=== PATIENT | male | born 1945 | race Caucasian/White ===

== ENCOUNTER → 2018-07-19 14:04 | Outpatient (CLI) | payer MEDICARE, OTHER, SELFPAY ==
--- NOTE | 2018-07-19 14:16 | DI.RAD.S_ITS ---
PROCEDURE: XR LUMBAR SPINE 2-3V INDICATIONS: ACUTE BACK PAIN TECHNIQUE: 3 views of the lumbar spine were acquired. COMPARISON: None. FINDINGS: Bones: 5 [id number] vertebrae are present. There is normal bony alignment. No vertebral body compression fractures. No suspicious bony lesions. There is moderately severe degenerative disc disease along the lumbosacral spine from L1 inferiorly, and facet osteoarthritis is most prominent at L4-5 and L5-S1. Mild convex rightward scoliosis is centered at L3. Spinal and foraminal stenosis likely is present. Soft tissues: Overlying bowel gas pattern is normal. No suspicious soft tissue calcifications. IMPRESSION: No compression fracture is found. Oliosis with moderately severe degenerative disc disease and facet osteoarthritis along the lumbosacral spine is present with spinal and foraminal stenosis most prominent at L4-5 and L5-S1. Dictated by: Tr Hdez M.D. on 07/19/2018 at 15:37 Approved by: Tr Hdez M.D. on 07/19/2018 at 15:39
--- NOTE | 2018-07-19 14:16 | DI.RAD.S_ITS ---
PROCEDURE: XR THORACIC SPINE 3V INDICATIONS: ACUTE BACK PAIN TECHNIQUE: 3 views of the thoracic spine were acquired. COMPARISON: None. FINDINGS: Bones: No fractures or dislocations. No suspicious bony lesions. 12 pairs of ribs are noted, and appear intact where visualized. Soft tissues: No paravertebral stripe thickening. IMPRESSION: Degenerative disc disease and facet osteoarthritis along the thoracic spine is mild and overall severity without evidence of compression fracture. No spinal or foraminal stenosis would be suspected. Dictated by: Tr Hdez M.D. on 07/19/2018 at 15:39 Approved by: Tr Hdez M.D. on 07/19/2018 at 15:40
== END ==
PROVIDERS: Family Provider Internal Medicine; PCP Internal Medicine; Visit Provider Internal Medicine
DX: M54.9 Dorsalgia, unspecified (principal); M51.37 Other intervertebral disc degeneration, lumbosacral region; M51.34 Other intervertebral disc degeneration, thoracic region; M48.07 Spinal stenosis, lumbosacral region; M48.061 Spinal stenosis, lumbar region without neurogenic claudication; M47.814 Spondylosis without myelopathy or radiculopathy, thoracic region; M47.816 Spondylosis without myelopathy or radiculopathy, lumbar region; M47.817 Spondylosis without myelopathy or radiculopathy, lumbosacral region
CPT/HCPCS: 72072; 72100

== ENCOUNTER 2019-01-04 09:45 | Inpatient (IN) | payer MEDICARE, OTHER, SELFPAY ==
[2019-01-04] VITALS (9 sets, daily range): BP systolic 107–149; BP diastolic 63–81; PULSE 56–77; RESP 15–20; TEMP 36.8–37.8; O2SAT 90–98; BMI 24.4
[2019-01-04 10:15] LABS: Add Manual Diff / Slide Review NO; Basophils Absolute Auto 0 /uL (0-100); Basophils Percent Auto 0.3 % (0-2); Eosinophils Absolute Auto 100 /uL (0-450); Eosinophils Percent Auto 0.9 % (2-4); Hematocrit 44.1 % (41-53); Hemoglobin 14.2 g/dL (13.5-17.5); Lymphocytes Absolute Auto 600 /uL (1100-4500); Lymphocytes Percent Auto 9.4 % (25-40); Mean Corpuscular HGB Conc 32.2 % (30-36); Mean Corpuscular Hemoglobin 26.7 PG (26-34); Monocytes Absolute Auto 500 /uL (0-900); Monocytes Percent Auto 7.5 % (3-14); Neutrophils Absolute Auto 5300 /uL (1500-7000); Neutrophils Percent Auto 81.9 % (50-75); Platelet Count 256 X10^3/uL (150-400); Red Blood Cell Count 5.32 X10^6/uL (4.5-5.9); Red Cell Distribution Width 18.7 % (11.6-14.8); White Blood Cell Count 6.5 X10^3/uL (4.5-11.0)
[2019-01-04 10:29] LABS: Alanine Aminotransferase 60 IU/L (21-72); Albumin 4.6 g/dL (3.5-5.0); Albumin Globulin Ratio 1.4 (1.0-2.8); Alkaline Phosphatase 68 U/L (38-126); Aspartate Aminotransferase 52 IU/L (17-59); Bilirubin Total 0.7 mg/dL (0.2-1.3); Blood Urea Nitrogen 16 mg/dL (9-20); Calcium 9.7 mg/dL (8.4-10.2); Carbon Dioxide 29 mmol/L (22-32); Chloride 102 mmol/L (98-107); Estimated Glomerular Filt Rate > 60.0 mL/min (>60); Globulin 3.2 g/dL (1.7-4.1); Glucose 117 mg/dL (80-110); HEMOLYSIS < 15 (0-50); Lipase 74 U/L (23-300); Potassium 4.2 mmol/L (3.4-5.1); Sodium 140 mmol/L (137-145); Total Protein 7.8 g/dL (6.3-8.2)
--- NOTE | 2019-01-04 10:42 | ED.ABDPAIN ---
HPI - Abdominal Pain General Chief Complaint: Abdominal Pain Stated Complaint: severe stomach pains Time Seen by Provider: 01/04/19 09:48 Source: patient and family Mode of arrival: ambulatory Limitations: no limitations History of Present Illness HPI narrative: 73-year-old male nonsmoker with relatively benign medical history presents with his in the chief complaint of a 12 hour span of worsening generalized abdominal pain in the presence of nausea and vomiting. He has worsening pain with movement and improvement with rest. He denies any radiation of the pain. He denies any history of similar. He had bowel movements yesterday but seem to be decreasing today. He has a poor appetite. MD complaint: abdominal pain Onset (ago): hour(s) Pain Consistency: constant Location: diffuse Severity: severe Quality: cramping and stabbing Radiation: none Relieving factors: rest Exacerbating factors: movement Associated symptoms: nausea and vomiting Related Data Home Medications Medication Instructions Recorded Confirmed terazosin 10 mg PO BEDTIME 01/04/19 01/04/19 Allergies Allergy/AdvReac Type Severity Reaction Status Date / Time No Known Drug Allergies Allergy Verified 01/04/19 09:56 Review of Systems Constitutional Denies chills, Denies fever(s), Denies lethargy and Denies weakness Eyes Denies change in vision, Denies eye discharge, Denies irritation and Denies loss of vision ENT Ears, Nose, Mouth, and Throat: Denies change in voice, Denies neck pain and Denies sore throat Cardiovascular Denies chest pain, Denies irregular heart rhythm, Denies lightheadedness, Denies palpitations, Denies dyspnea, Denies dyspnea on exertion and Denies orthopnea Respiratory Denies cough, Denies dyspnea, Denies dyspnea on exertion and Denies wheezing Gastrointestinal Gastrointestinal: Reports abdominal pain, Denies change in bowel habits, Denies diarrhea, Reports nausea and Reports vomiting Genitourinary Denies hematuria, Denies flank pain, Denies urinary incontinence and Denies urinary urgency Musculoskeletal Denies neck pain Integumentary/Breasts Denies pruritus, Denies erythema, Denies rash and Denies wounds Neurologic Denies confusion, Denies loss of vision and Denies weakness Psychiatric Denies anxiety, Denies confusion, Denies depression, Denies homicidal ideation and Denies suicidal ideation Endocrine Denies palpitations Hematologic/Lymphatic Denies easy bruising Allergic/Immunologic Denies wheezing [facility] Medical History Abnormal endoscopy of upper gastrointestinal tract (Acute) Chronic back pain (Acute) Chronic fatigue (Acute) Essential tremor (Acute) Pre-diabetes (Acute) Weakness of left lower extremity (Acute) Family History (Updated 01/04/19 @ 21:46 by Janki Monaco RN) Other Breast cancer Parkinsons disease Social History household members: spouse Family History Other Breast cancer Parkinsons disease Social History household members: spouse Exam Narrative Exam Narrative: GENERAL: 73-year-old male appears stated age, obviously uncomfortable and in significant distress, rubbing his abdomen and holding an emesis bag HEAD: Atraumatic. Normocephalic. No temporal or scalp tenderness. EYES: Pupils equal round and reactive. Extraocular motions intact. No scleral icterus. No injection or drainage. ENT: Nose without bleeding, purulent drainage or septal hematoma. Throat without erythema, tonsillar hypertrophy or exudate. Uvula midline. Airway patent. NECK: Trachea midline. No JVD or lymphadenopathy. Supple, nontender, no meningeal signs. CARDIOVASCULAR: Regular rate and rhythm without murmurs, gallops, or rubs. RESPIRATORY: Clear to auscultation. Breath sounds equal bilaterally. No wheezes, rales, or rhonchi. GASTROINTESTINAL: Abdomen soft, tender throughout, nondistended. No hepato-splenomegaly, or palpable masses. No guarding. EXTREMITIES: No clubbing, cyanosis, or edema. No joint tenderness, effusion, or edema noted. BACK: Nontender without deformity or crepitance. No flank tenderness. NEURO: AOx3. SKIN: No rash or erythema. Initial Vital Signs Initial Vital Signs: Vital Signs Pulse Rate 57 L 01/04/19 09:53 Respiratory Rate 20 01/04/19 09:53 Blood Pressure 136/76 01/04/19 09:53 Pulse Oximetry 96 01/04/19 09:53 Course Orders Ordered: ED Orders 01/05/19 07:00 Complete Blood Count AUTO DIFF Routine 01/05/19 08:00 XR abdomen min 2V Routine Sodium Chloride (Normal Saline 0.9%) 1,000 mls @ 100 mls/hr IV CONT RUFINO Last Admin: 01/05/19 02:39 Dose: 100 mls/hr Infusion: 01/05/19 02:39 Dose: 100 mls/hr Admin: 01/04/19 16:55 Dose: 100 mls/hr Infusion: 01/04/19 16:55 Dose: 100 mls/hr Admin: 01/04/19 16:50 Dose: 100 mls/hr Infusion: 01/04/19 16:50 Dose: 100 mls/hr Admin: 01/04/19 16:35 Dose: 100 mls/hr Morphine Sulfate (Morphine) 2 mg IV Q4HR PRN PRN Reason: Pain, Moderate (4-6) Last Admin: 01/05/19 05:33 Dose: 2 mg Admin: 01/04/19 16:49 Dose: 2 mg Ondansetron HCl (Zofran) 4 mg IV Q8HR PRN PRN Reason: Nausea And Vomiting Discontinued Medications Bisacodyl (Dulcolax) 10 mg WA NOW ONE Stop: 01/04/19 16:14 Last Admin: 01/04/19 16:35 Dose: 10 mg Hydromorphone HCl (Dilaudid) 0.5 mg IV NOW ONE Stop: 01/04/19 11:48 Last Admin: 01/04/19 14:14 Dose: 0.5 mg Hydromorphone HCl (Dilaudid) 0.5 mg IV NOW ONE Stop: 01/04/19 11:48 Last Admin: 01/04/19 11:51 Dose: 0.5 mg Hydromorphone HCl (Dilaudid) 0.5 mg IV NOW ONE Stop: 01/04/19 14:11 Last Admin: 01/04/19 14:21 Dose: Not Given Sodium Chloride (Normal Saline 0.9%) 1,000 mls @ 1,000 mls/hr IV BOLUS ONE Stop: 01/04/19 14:26 Last Infusion: 01/04/19 14:20 Dose: 1,000 mls/hr Admin: 01/04/19 14:09 Dose: 1,000 mls/hr Sodium Chloride (Normal Saline 0.9%) 1,000 mls @ 125 mls/hr IV CONT RUFINO Last Admin: 01/04/19 17:04 Dose: Not Given Morphine Sulfate (Morphine) 2 mg IV NOW ONE Stop: 01/04/19 14:55 Last Admin: 01/04/19 16:31 Dose: Not Given Morphine Sulfate (Morphine) 2 mg IV Q4HR PRN PRN Reason: Pain, Severe (7-10) Ondansetron HCl (Zofran) 4 mg IV Q4HR PRN PRN Reason: Nausea And Vomiting Consultations Consultation #1: Dr. Hernandez happy to accept this patient Vital Signs - 8 hr 01/04/19 23:00 01/05/19 00:00 01/05/19 02:46 Temperature 100.0 F H 99.7 F H Pulse Rate 77 72 Respiratory Rate 18 18 Blood Pressure 130/71 135/76 Pulse Oximetry 95 94 94 01/05/19 05:33 01/05/19 05:59 Temperature 99.6 F 99.6 F Pulse Rate Respiratory Rate Blood Pressure Pulse Oximetry MDM - Abdominal Pain Lab Data Result diagrams: 01/04/19 10:05 01/04/19 10:05 Lab Results 01/04/19 01/04/19 Range/Units 10:05 10:05 WBC 6.5 (4.5-11.0) X10^3/uL RBC 5.32 (4.5-5.9) X10^6/uL Hgb 14.2 (13.5-17.5) g/dL Hct 44.1 (41-53) % MCV 83.0 (80-100) fL MCH 26.7 (26-34) PG MCHC 32.2 (30-36) % RDW 18.7 H (11.6-14.8) % Plt Count 256 (150-400) X10^3/uL Neut % (Auto) 81.9 H (50-75) % Lymph % (Auto) 9.4 L (25-40) % [place] % (Auto) 7.5 (3-14) % Eos % (Auto) 0.9 L (2-4) % Baso % (Auto) 0.3 (0-2) % Neut # (Auto) 5300 (3862-4365) /uL Lymph # (Auto) 600 L (7243-2500) /uL [place] # (Auto) 500 (0-900) /uL Eos # (Auto) 100 (0-450) /uL Baso # (Auto) 0 (0-100) /uL Sodium 140 (137-145) mmol/L Potassium 4.2 (3.4-5.1) mmol/L Chloride 102 (98-107) mmol/L Carbon Dioxide 29 (22-32) mmol/L BUN 16 (9-20) mg/dL Creatinine 0.80 (0.66-1.25) mg/dL Estimated GFR > 60.0 (>60) mL/min BUN/Creatinine Ratio 20.0 (6-22) Glucose 117 H (80-110) mg/dL Calcium 9.7 (8.4-10.2) mg/dL Total Bilirubin 0.7 (0.2-1.3) mg/dL AST 52 (17-59) IU/L ALT 60 (21-72) IU/L Alkaline Phosphatase 68 (38-126) U/L Total Protein 7.8 (6.3-8.2) g/dL Albumin 4.6 (3.5-5.0) g/dL Globulin 3.2 (1.7-4.1) g/dL Albumin/Globulin Ratio 1.4 (1.0-2.8) Lipase 74 (23-300) U/L Imaging Data CT scan - abdomen: Radiologist's impression: [place] [address] CT Scan Report Signed Patient: Abhinav Mari [facility]#: [id number] : 6Acct:[id number] Age/Sex: 73 / MDate of Service: 01/04/19 Loc: ED Accession Number: [id number] Procedure: CT abdomen pelvis w con Ordering Provider: Momo López D.O. PROCEDURE: CT ABDOMEN PELVIS W CON INDICATIONS: severe pain, N/V, 20# wt. loss TECHNIQUE: After the administration of oral and intravenous contrast, 5 mm thick sections acquired from the diaphragms to the symphysis. 5 mm thick coronal and sagittal reformats were performed. For radiation dose reduction, the following was used: automated exposure control, adjustment of mA and/or kV according to patient size. COMPARISON: None. FINDINGS: Image quality: Excellent. ABDOMEN: Lung bases: Lung bases are clear. Heart size is normal. Solid organs: The liver, spleen, adrenals, and pancreas are within normal limits. There are small (3-4 mm) calculi evident within the left kidney, which are nonobstructing. No hydronephrosis is present. There may be small cysts involving the left kidney. No solid renal lesion is appreciated. Peritoneum and bowel: The esophagus is fluid-filled. There may be a small hiatal hernia. The stomach and duodenum are unremarkable. Multiple dilated fluid-filled small bowel loops are identified throughout the abdomen. The distal most small bowel loops are significantly decompressed. The exact transition is unclear, but appears to be located within the right alma-abdomen and probably is on the basis of adhesions. Air and stool are seen throughout the colon. No free fluid, loculated fluid collection or free air is evident. A small fat containing periumbilical hernia is present. Nodes and vessels: No retroperitoneal or mesenteric adenopathy. Aorta and inferior vena cava are normal in caliber. There is aortic atherosclerosis. Bones: No acute fracture or suspicious osseous lesion is identified. Age-appropriate degenerative changes of the spine are present. PELVIS: Genitourinary: Bladder wall thickness is normal. The prostate is enlarged and contains coarse calcifications. Miscellaneous: There appears to be a fat containing right inguinal hernia. No free fluid, loculated fluid collection or free air is seen within the pelvis. Bones: No suspicious bony lesions. No acute pelvic fractures are identified. IMPRESSION: 1. Small bowel obstruction with transition located within the ileum. The exact cause is uncertain, but may be related to adhesions. 2. Fluid within the esophagus may represent gastroesophageal reflux. There is a small hiatal hernia. 3. Small fat containing right inguinal hernia. 4. Nonobstructing left renal calculi. 5. Enlarged prostate. Dictated by: Bharath Agudelo M.D. on 01/04/2019 at 11:42 Approved by: Bharath Agudelo M.D. on 01/04/2019 at 11:48 Discharge Plan Departure Patient Disposition: Admitted As Inpatient Clinical Impression: Small bowel obstruction Discharge Date/Time: 01/04/19 14:43 Interventions: ED Discharge Assessment Last Done: 01/04/19 14:42 Admit Date/Time: 01/04/19 13:30 Admit Provider: Joe Hernandez
--- NOTE | 2019-01-04 10:49 | DI.CT.S_ITS ---
PROCEDURE: CT ABDOMEN PELVIS W CON INDICATIONS: severe pain, N/V, 20# wt. loss TECHNIQUE: After the administration of oral and intravenous contrast, 5 mm thick sections acquired from the diaphragms to the symphysis. 5 mm thick coronal and sagittal reformats were performed. For radiation dose reduction, the following was used: automated exposure control, adjustment of mA and/or kV according to patient size. COMPARISON: None. FINDINGS: Image quality: Excellent. ABDOMEN: Lung bases: Lung bases are clear. Heart size is normal. Solid organs: The liver, spleen, adrenals, and pancreas are within normal limits. There are small (3-4 mm) calculi evident within the left kidney, which are nonobstructing. No hydronephrosis is present. There may be small cysts involving the left kidney. No solid renal lesion is appreciated. Peritoneum and bowel: The esophagus is fluid-filled. There may be a small hiatal hernia. The stomach and duodenum are unremarkable. Multiple dilated fluid-filled small bowel loops are identified throughout the abdomen. The distal most small bowel loops are significantly decompressed. The exact transition is unclear, but appears to be located within the right alma-abdomen and probably is on the basis of adhesions. Air and stool are seen throughout the colon. No free fluid, loculated fluid collection or free air is evident. A small fat containing periumbilical hernia is present. Nodes and vessels: No retroperitoneal or mesenteric adenopathy. Aorta and inferior vena cava are normal in caliber. There is aortic atherosclerosis. Bones: No acute fracture or suspicious osseous lesion is identified. Age-appropriate degenerative changes of the spine are present. PELVIS: Genitourinary: Bladder wall thickness is normal. The prostate is enlarged and contains coarse calcifications. Miscellaneous: There appears to be a fat containing right inguinal hernia. No free fluid, loculated fluid collection or free air is seen within the pelvis. Bones: No suspicious bony lesions. No acute pelvic fractures are identified. IMPRESSION: 1. Small bowel obstruction with transition located within the ileum. The exact cause is uncertain, but may be related to adhesions. 2. Fluid within the esophagus may represent gastroesophageal reflux. There is a small hiatal hernia. 3. Small fat containing right inguinal hernia. 4. Nonobstructing left renal calculi. 5. Enlarged prostate. Dictated by: Bharath Agudelo M.D. on 01/04/2019 at 11:42 Approved by: Bharath Agudelo M.D. on 01/04/2019 at 11:48
[2019-01-04] MEDS: HYDROMORPHONE 0.5 MG INJ IV (11:51)
[2019-01-04] MEDS: SODIUM CHLORIDE 0.9% 1,000 ML 1000 ML IV (14:09)
[2019-01-04] MEDS: HYDROMORPHONE 1 MG INJ 0.5 MG IV (14:14)
--- NOTE | 2019-01-04 16:13 | P.HP_ITS ---
History of Present Illness Date Patient Seen: 01/04/19 Time Patient Seen: 16:04 Chief complaint: severe stomach pains Narrative: 73-YEAR-OLD WHITE MALE WAS AWAKENED THIS MORNING WITH SEVERE MID ABDOMINAL PAIN NO NAUSEA VOMITING NO DIARRHEA PAIN INCREASED IN SEVERITY AND HE CAME TO THE EMERGENCY ROOM HERE AT [facility] WHERE HE HAD AN ABDOMINAL PELVIC CT SCAN READ SMALL-BOWEL OBSTRUCTION. PATIENT HAS HAD NO PRIOR ABDOMINAL SURGERY THEREFORE NO INTRAPERITONEAL ADHESIONS AT LEAST SURGICALLY CAUSE. DOES HAVE A RIGHT INGUINAL HERNIA SEEN ON THE CT WHICH CONTAINS A SMALL AMOUNT OF FAT NO BOWEL. PATIENT IS ADMITTED FOR FURTHER EVALUATION NASOGASTRIC DECOMPRESSION AND IV FLUIDS. WILL HAVE REPEAT ABDOMINAL FILMS IN THE MORNING. MY REVIEW OF THE CT REVEALS ONLY PARTIAL SMALL-BOWEL OBSTRUCTION GIVEN AT THERE IS A COPIOUS AMOUNT OF GAS AND STOOL IN PATIENT'S COLON Meds Allergies Allergy/AdvReac Type Severity Reaction Status Date / Time No Known Drug Allergies Allergy Verified 01/04/19 09:56 Review of Systems Review of Systems All systems reviewed & are unremarkable except as noted in HPI and below Neurologic Comments: PATIENT HAS A REST TREMOR TAKES NO MEDICATIONS FOR THAT Exam Vital Signs (past 8 hours): - 01/04/19 09:53 01/04/19 10:30 01/04/19 11:00 Temperature Pulse Rate 57 L 59 L 61 Respiratory Rate 20 Blood Pressure 136/76 Blood Pressure [Left Arm] 124/78 127/76 Pulse Oximetry 96 97 01/04/19 11:30 01/04/19 12:30 01/04/19 13:30 Temperature Pulse Rate 65 56 L 61 Respiratory Rate 15 Blood Pressure Blood Pressure [Left Arm] 126/78 107/63 109/71 Pulse Oximetry 98 94 90 L 01/04/19 14:30 Temperature 98.2 F Pulse Rate 62 Respiratory Rate 18 Blood Pressure 149/81 H Blood Pressure [Left Arm] Pulse Oximetry 97 Oxygen Delivery Method Room Air Narrative Exam Narrative: PATIENT IS ALERT AND ORIENTED VITAL SIGNS ARE STABLE LUNGS ARE CLEAR WITH NO RALES OR WHEEZES HEART REGULAR RHYTHM NO MURMUR ABDOMEN IS MILDLY DISTENDED WITH MINIMAL TENDERNESS PATIENT HAS A NASOGASTRIC TUBE IN PLACE PRODUCING MINIMAL SUCCUS ENTERICUS THERE ARE NO ABDOMINAL MASSES PALPATED PATIENT DOES HAVE A VERY SMALL REDUCIBLE UMBILICAL HERNIA AND ALSO A VERY SMALL RIGHT INGUINAL HERNIA. NEITHER HERNIA CONTAINS ANY VISCERA. PATIENT HAS A REST TREMOR OTHERWISE NEUROLOGICALLY HE IS INTACT EXTREMITIES ARE NORMAL REMAINING PHYSICAL IS UNREMARKABLE Objective Labs Result Diagrams: 01/04/19 10:05 01/04/19 10:05 Labs: Laboratory Results - last 24 hr 01/04/19 01/04/19 10:05 10:05 WBC 6.5 RBC 5.32 Hgb 14.2 Hct 44.1 MCV 83.0 MCH 26.7 MCHC 32.2 RDW 18.7 H Plt Count 256 Neut % (Auto) 81.9 H Lymph % (Auto) 9.4 L [place] % (Auto) 7.5 Eos % (Auto) 0.9 L Baso % (Auto) 0.3 Neut # (Auto) 5300 Lymph # (Auto) 600 L [place] # (Auto) 500 Eos # (Auto) 100 Baso # (Auto) 0 Sodium 140 Potassium 4.2 Chloride 102 Carbon Dioxide 29 BUN 16 Creatinine 0.80 Estimated GFR > 60.0 BUN/Creatinine Ratio 20.0 Glucose 117 H Calcium 9.7 Total Bilirubin 0.7 AST 52 ALT 60 Alkaline Phosphatase 68 Total Protein 7.8 Albumin 4.6 Globulin 3.2 Albumin/Globulin Ratio 1.4 Lipase 74 Assessment & Plan Assessment & Plan narrative: PATIENT WITH ABDOMINAL PAIN SMALL BOWEL DISTENSION GAS AND STOOL IN THE COLON NORMAL WHITE COUNT ADMITTED WITH POSSIBLE PARTIAL SMALL BOWEL OBSTRUCTION. HE WILL BE TREATED SUCH WITH NASOGASTRIC DECO MPRESSION IV FLUIDS AND REPEAT PLAIN FILMS OF THE ABDOMEN IN THE MORNING. AT THE TIME OF THIS EXAM PATIENT HAS NO PAIN AND IS NASOGASTRIC TUBE IS PUTTING OUT ONLY SCANT FLUID. HE IS BEING TREATED WITH BOWEL REST AND IV FLUIDS.
[2019-01-04] MEDS: SODIUM CHLORIDE 0.9% 1,000 ML 100 ML IV ×3 (16:35→16:55)
[2019-01-04] MEDS: BISACODYL 10 MG SUPP PR (16:35)
[2019-01-04] MEDS: MORPHINE 2 MG/ML INJ IV (16:49)
--- NOTE | 2019-01-04 23:33 | PC.NURSE ---
Tracy shift note: Patient unable to void, notified Dr. Keller. New order obtained for Araujo Catheter insertion. 495 ml amount per bladder scanner. Inserted FC, patient tolarated procedure well. 750 ml clear yellow urine post insertion. Patient accidentally pulled out NGT. New NGT inserted, 16 FR to right nare, placement confirmed with 2 RNs. Draining brown rust drainage to cont. suction. No nausea or vomiting. Tolerated procedure well.
[2019-01-05] VITALS (12 sets, daily range): BP systolic 118–145; BP diastolic 69–84; PULSE 59–72; RESP 14–20; TEMP 37–37.7; O2SAT 91–97
[2019-01-05] MEDS: SODIUM CHLORIDE 0.9% 1,000 ML 100 ML IV (02:39)
--- NOTE | 2019-01-05 02:48 | PC.NURSE ---
@0245- Patients NGT is to continuous low to medium suction. His NGT has not put out anything this shift so far and there is only 100cc of light brown thin gastric drainage from evening shift. 15cc air inserted into NGT and auscultated burp at beginning of shift. Had patient drink about 20cc of water to see if it would come back out of the NGT and i did not witness that. I advanced his NGT further to the last black tick oneal on the catheter with no issues. NGT was re-taped and secured and will continue to make frequent assessments of NGT status. Abdominal Xray is scheduled for today at 0800.
[2019-01-05] MEDS: MORPHINE 2 MG/ML INJ IV (05:33)
--- NOTE | 2019-01-05 05:49 | PC.NURSE ---
Addendum entered by Zi Sarmiento R.N. 01/05/19 06:31: 100 cc NGT output was observed at 2300 from previous shift. Total output for this shift was 250 cc. 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 Repeat abdominal XR scheduled for this morning. Gave morphine PRN x1 for abd pain. Abd is firm, distended, tender. No flatus present. No BM this shift; per evening RN, pt was given dulcolax suppository. Temp high this shift of 100 F, decreased to 99.6 F without intervention. VS WNL, however pt reports BP is higher than his baseline, which he reports to be average 110/60-70. Pt has baseline LLE weakness, limited ROM, and numbness; he reports that at home he uses trekking poles when walking his dog. He has essential tremors in BLE and needs occasional assistance with ADLs for this reason. A&O x4. Compliant with SCDs.
--- NOTE | 2019-01-05 06:55 | ED_ITS ---
HPI - Abdominal Pain General Chief Complaint: Abdominal Pain Stated Complaint: severe stomach pains Time Seen by Provider: 01/04/19 09:48 Source: patient and family Mode of arrival: ambulatory Limitations: no limitations History of Present Illness HPI narrative: 73-year-old male nonsmoker with relatively benign medical history presents with his in the chief complaint of a 12 hour span of worsening generalized abdominal pain in the presence of nausea and vomiting. He has worsening pain with movement and improvement with rest. He denies any radiation of the pain. He denies any history of similar. He had bowel movements yesterday but seem to be decreasing today. He has a poor appetite. MD complaint: abdominal pain Onset (ago): hour(s) Pain Consistency: constant Location: diffuse Severity: severe Quality: cramping and stabbing Radiation: none Relieving factors: rest Exacerbating factors: movement Associated symptoms: nausea and vomiting Related Data Home Medications Medication Instructions Recorded Confirmed terazosin 10 mg PO BEDTIME 01/04/19 01/04/19 Allergies Allergy/AdvReac Type Severity Reaction Status Date / Time No Known Drug Allergies Allergy Verified 01/04/19 09:56 Review of Systems Constitutional Denies chills, Denies fever(s), Denies lethargy and Denies weakness Eyes Denies change in vision, Denies eye discharge, Denies irritation and Denies loss of vision ENT Ears, Nose, Mouth, and Throat: Denies change in voice, Denies neck pain and Denies sore throat Cardiovascular Denies chest pain, Denies irregular heart rhythm, Denies lightheadedness, Denies palpitations, Denies dyspnea, Denies dyspnea on exertion and Denies orthopnea Respiratory Denies cough, Denies dyspnea, Denies dyspnea on exertion and Denies wheezing Gastrointestinal Gastrointestinal: Reports abdominal pain, Denies change in bowel habits, Denies diarrhea, Reports nausea and Reports vomiting Genitourinary Denies hematuria, Denies flank pain, Denies urinary incontinence and Denies urinary urgency Musculoskeletal Denies neck pain Integumentary/Breasts Denies pruritus, Denies erythema, Denies rash and Denies wounds Neurologic Denies confusion, Denies loss of vision and Denies weakness Psychiatric Denies anxiety, Denies confusion, Denies depression, Denies homicidal ideation and Denies suicidal ideation Endocrine Denies palpitations Hematologic/Lymphatic Denies easy bruising Allergic/Immunologic Denies wheezing [facility] Medical History Abnormal endoscopy of upper gastrointestinal tract (Acute) Chronic back pain (Acute) Chronic fatigue (Acute) Essential tremor (Acute) Pre-diabetes (Acute) Weakness of left lower extremity (Acute) Family History (Updated 01/04/19 @ 21:46 by Janki Monaco RN) Other Breast cancer Parkinsons disease Social History household members: spouse Family History Other Breast cancer Parkinsons disease Social History household members: spouse Exam Narrative Exam Narrative: GENERAL: 73-year-old male appears stated age, obviously uncomfortable and in significant distress, rubbing his abdomen and holding an emesis bag HEAD: Atraumatic. Normocephalic. No temporal or scalp tenderness. EYES: Pupils equal round and reactive. Extraocular motions intact. No scleral icterus. No injection or drainage. ENT: Nose without bleeding, purulent drainage or septal hematoma. Throat without erythema, tonsillar hypertrophy or exudate. Uvula midline. Airway patent. NECK: Trachea midline. No JVD or lymphadenopathy. Supple, nontender, no meningeal signs. CARDIOVASCULAR: Regular rate and rhythm without murmurs, gallops, or rubs. RESPIRATORY: Clear to auscultation. Breath sounds equal bilaterally. No wheezes, rales, or rhonchi. GASTROINTESTINAL: Abdomen soft, tender throughout, nondistended. No hepato- splenomegaly, or palpable masses. No guarding. EXTREMITIES: No clubbing, cyanosis, or edema. No joint tenderness, effusion, or edema noted. BACK: Nontender without deformity or crepitance. No flank tenderness. NEURO: AOx3. SKIN: No rash or erythema. Initial Vital Signs Initial Vital Signs: Vital Signs Pulse Rate 57 L 01/04/19 09:53 Respiratory Rate 20 01/04/19 09:53 Blood Pressure 136/76 01/04/19 09:53 Pulse Oximetry 96 01/04/19 09:53 Course Orders Ordered: ED Orders 01/05/19 07:00 Complete Blood Count AUTO DIFF Routine 01/05/19 08:00 XR abdomen min 2V Routine Sodium Chloride (Normal Saline 0.9%) 1,000 mls @ 100 mls/hr IV CONT RUFINO Last Admin: 01/05/19 02:39 Dose: 100 mls/hr Infusion: 01/05/19 02:39 Dose: 100 mls/hr Admin: 01/04/19 16:55 Dose: 100 mls/hr Infusion: 01/04/19 16:55 Dose: 100 mls/hr Admin: 01/04/19 16:50 Dose: 100 mls/hr Infusion: 01/04/19 16:50 Dose: 100 mls/hr Admin: 01/04/19 16:35 Dose: 100 mls/hr Morphine Sulfate (Morphine) 2 mg IV Q4HR PRN PRN Reason: Pain, Moderate (4-6) Last Admin: 01/05/19 05:33 Dose: 2 mg Admin: 01/04/19 16:49 Dose: 2 mg Ondansetron HCl (Zofran) 4 mg IV Q8HR PRN PRN Reason: Nausea And Vomiting Discontinued Medications Bisacodyl (Dulcolax) 10 mg WI NOW ONE Stop: 01/04/19 16:14 Last Admin: 01/04/19 16:35 Dose: 10 mg Hydromorphone HCl (Dilaudid) 0.5 mg IV NOW ONE Stop: 01/04/19 11:48 Last Admin: 01/04/19 14:14 Dose: 0.5 mg Hydromorphone HCl (Dilaudid) 0.5 mg IV NOW ONE Stop: 01/04/19 11:48 Last Admin: 01/04/19 11:51 Dose: 0.5 mg Hydromorphone HCl (Dilaudid) 0.5 mg IV NOW ONE Stop: 01/04/19 14:11 Last Admin: 01/04/19 14:21 Dose: Not Given Sodium Chloride (Normal Saline 0.9%) 1,000 mls @ 1,000 mls/hr IV BOLUS ONE Stop: 01/04/19 14:26 Last Infusion: 01/04/19 14:20 Dose: 1,000 mls/hr Admin: 01/04/19 14:09 Dose: 1,000 mls/hr Sodium Chloride (Normal Saline 0.9%) 1,000 mls @ 125 mls/hr IV CONT RUFINO Last Admin: 01/04/19 17:04 Dose: Not Given Morphine Sulfate (Morphine) 2 mg IV NOW ONE Stop: 01/04/19 14:55 Last Admin: 01/04/19 16:31 Dose: Not Given Morphine Sulfate (Morphine) 2 mg IV Q4HR PRN PRN Reason: Pain, Severe (7-10) Ondansetron HCl (Zofran) 4 mg IV Q4HR PRN PRN Reason: Nausea And Vomiting Consultations Consultation #1: Dr. Hernandez happy to accept this patient Vital Signs - 8 hr 01/04/19 23:00 01/05/19 00:00 01/05/19 02:46 Temperature 100.0 F H 99.7 F H Pulse Rate 77 72 Respiratory Rate 18 18 Blood Pressure 130/71 135/76 Pulse Oximetry 95 94 94 01/05/19 05:33 01/05/19 05:59 Temperature 99.6 F 99.6 F Pulse Rate Respiratory Rate Blood Pressure Pulse Oximetry MDM - Abdominal Pain Lab Data Result diagrams: 01/04/19 10:05 01/04/19 10:05 Lab Results 01/04/19 01/04/19 Range/Units 10:05 10:05 WBC 6.5 (4.5-11.0) X10^3/uL RBC 5.32 (4.5-5.9) X10^6/uL Hgb 14.2 (13.5-17.5) g/dL Hct 44.1 (41-53) % MCV 83.0 (80-100) fL MCH 26.7 (26-34) PG MCHC 32.2 (30-36) % RDW 18.7 H (11.6-14.8) % Plt Count 256 (150-400) X10^3/uL Neut % (Auto) 81.9 H (50-75) % Lymph % (Auto) 9.4 L (25-40) % [place] % (Auto) 7.5 (3-14) % Eos % (Auto) 0.9 L (2-4) % Baso % (Auto) 0.3 (0-2) % Neut # (Auto) 5300 (6433-4840) /uL Lymph # (Auto) 600 L (0919-0510) /uL [place] # (Auto) 500 (0-900) /uL Eos # (Auto) 100 (0-450) /uL Baso # (Auto) 0 (0-100) /uL Sodium 140 (137-145) mmol/L Potassium 4.2 (3.4-5.1) mmol/L Chloride 102 (98-107) mmol/L Carbon Dioxide 29 (22-32) mmol/L BUN 16 (9-20) mg/dL Creatinine 0.80 (0.66-1.25) mg/dL Estimated GFR > 60.0 (>60) mL/min BUN/Creatinine Ratio 20.0 (6-22) Glucose 117 H (80-110) mg/dL Calcium 9.7 (8.4-10.2) mg/dL Total Bilirubin 0.7 (0.2-1.3) mg/dL AST 52 (17-59) IU/L ALT 60 (21-72) IU/L Alkaline Phosphatase 68 (38-126) U/L Total Protein 7.8 (6.3-8.2) g/dL Albumin 4.6 (3.5-5.0) g/dL Globulin 3.2 (1.7-4.1) g/dL Albumin/Globulin Ratio 1.4 (1.0-2.8) Lipase 74 (23-300) U/L Imaging Data CT scan - abdomen: Radiologist's impression: [place] [address] CT Scan Report Signed Patient: Abhinav Mari [facility]#: [id number] : 6Acct:[id number] Age/Sex: 73 / MDate of Service: 01/04/19 Loc: ED Accession Number: [id number] Procedure: CT abdomen pelvis w con Ordering Provider: Momo López D.O. PROCEDURE: CT ABDOMEN PELVIS W CON INDICATIONS: severe pain, N/V, 20# wt. loss TECHNIQUE: After the administration of oral and intravenous contrast, 5 mm thick sections acquired from the diaphragms to the symphysis. 5 mm thick coronal and sagittal reformats were performed. For radiation dose reduction, the following was used: automated exposure control, adjustment of mA and/or kV according to patient size. COMPARISON: None. FINDINGS: Image quality: Excellent. ABDOMEN: Lung bases: Lung bases are clear. Heart size is normal. Solid organs: The liver, spleen, adrenals, and pancreas are within normal limits. There are small (3-4 mm) calculi evident within the left kidney, which are nonobstructing. No hydronephrosis is present. There may be small cysts involving the left kidney. No solid renal lesion is appreciated. Peritoneum and bowel: The esophagus is fluid-filled. There may be a small hiatal hernia. The stomach and duodenum are unremarkable. Multiple dilated fluid- filled small bowel loops are identified throughout the abdomen. The distal most small bowel loops are significantly decompressed. The exact transition is unclear, but appears to be located within the right alma-abdomen and probably is on the basis of adhesions. Air and stool are seen throughout the colon. No free fluid, loculated fluid collection or free air is evident. A small fat containing periumbilical hernia is present. Nodes and vessels: No retroperitoneal or mesenteric adenopathy. Aorta and inferior vena cava are normal in caliber. There is aortic atherosclerosis. Bones: No acute fracture or suspicious osseous lesion is identified. Age- appropriate degenerative changes of the spine are present. PELVIS: Genitourinary: Bladder wall thickness is normal. The prostate is enlarged and contains coarse calcifications. Miscellaneous: There appears to be a fat containing right inguinal hernia. No free fluid, loculated fluid collection or free air is seen within the pelvis. Bones: No suspicious bony lesions. No acute pelvic fractures are identified. IMPRESSION: 1. Small bowel obstruction with transition located within the ileum. The exact cause is uncertain, but may be related to adhesions. 2. Fluid within the esophagus may represent gastroesophageal reflux. There is a small hiatal hernia. 3. Small fat containing right inguinal hernia. 4. Nonobstructing left renal calculi. 5. Enlarged prostate. Dictated by: Bharath Agudelo M.D. on 01/04/2019 at 11:42 Approved by: Bharath Agudelo M.D. on 01/04/2019 at 11:48 Discharge Plan Departure Patient Disposition: Admitted As Inpatient Clinical Impression: Small bowel obstruction Discharge Date/Time: 01/04/19 14:43 Interventions: ED Discharge Assessment Last Done: 01/04/19 14:42 Admit Date/Time: 01/04/19 13:30 Admit Provider: Joe Hernandez
[2019-01-05 07:46] LABS: Add Manual Diff / Slide Review NO; Basophils Absolute Auto 0 /uL (0-100); Basophils Percent Auto 0.3 % (0-2); Eosinophils Absolute Auto 0 /uL (0-450); Eosinophils Percent Auto 0.7 % (2-4); Hematocrit 41.8 % (41-53); Hemoglobin 13.4 g/dL (13.5-17.5); Lymphocytes Absolute Auto 900 /uL (1100-4500); Lymphocytes Percent Auto 13.6 % (25-40); Mean Corpuscular HGB Conc 32.1 % (30-36); Mean Corpuscular Hemoglobin 26.5 PG (26-34); Mean Corpuscular Volume 82.6 fL (80-100); Monocytes Absolute Auto 1000 /uL (0-900); Monocytes Percent Auto 13.9 % (3-14); Neutrophils Absolute Auto 4900 /uL (1500-7000); Neutrophils Percent Auto 71.5 % (50-75); Platelet Count 222 X10^3/uL (150-400); Red Blood Cell Count 5.06 X10^6/uL (4.5-5.9); Red Cell Distribution Width 18.9 % (11.6-14.8); White Blood Cell Count 6.9 X10^3/uL (4.5-11.0)
--- NOTE | 2019-01-05 08:00 | DI.RAD.S_ITS ---
PROCEDURE: XR ABDOMEN MIN 2V INDICATIONS: SBO TECHNIQUE: 2 views of the abdomen were acquired. COMPARISON: [facility], CT, CT ABDOMEN PELVIS W CON, 01/04/2019, 12:08. None. FINDINGS: Surgical changes and devices: Nasogastric tube is identified within the region of the stomach. Bowel: Multiple dilated small bowel loops are identified with air fluid levels evident within the upper abdomen. Air and stool are seen within the colon. No definite free air is appreciated. Soft tissues: No masses; visualized solid organ contours appear normal in size. No suspicious abdominal calcifications. Bones: No suspicious bony abnormalities. IMPRESSION: Continued small bowel obstruction. Dictated by: Bharath Agudelo M.D. on 01/05/2019 at 8:52 Approved by: Bharath Agudelo M.D. on 01/05/2019 at 8:53
--- NOTE | 2019-01-05 10:28 | P.PN_ITS ---
Subjective Date Patient Seen: 01/05/19 Time Patient Seen: 10:26 Interval history: Patient has been admitted with a small-bowel obstruction for 24 hours now. He has no abdominal pain today no nausea vomiting. Nasogastric tube has put out a moderate amount of succus entericus. Patient is passing flatus at this point. Abdominal films this morning her returning to normal with plenty of gas and stool in the colon with 1 loop of small bowel gas remaining. Exam Vital Signs (past 8 hours): - 01/05/19 02:46 01/05/19 05:33 01/05/19 05:59 Temperature 99.7 F H 99.6 F 99.6 F Pulse Rate 72 Respiratory Rate 18 Blood Pressure 135/76 Pulse Oximetry 94 01/05/19 07:00 Temperature 98.9 F Pulse Rate 66 Respiratory Rate 16 Blood Pressure 123/75 Pulse Oximetry 96 Oxygen Delivery Method Room Air Oxygen Flow Rate 0 Narrative Exam Narrative: Patient is afebrile alert and oriented Has no abdominal pain Abdomen is less distended it is soft and there is no abdominal tenderness. Objective Labs Result Diagrams: 01/05/19 07:35 01/04/19 10:05 Labs: Laboratory Results - last 24 hr 01/04/19 01/05/19 10:05 07:35 WBC 6.9 RBC 5.06 Hgb 13.4 L Hct 41.8 MCV 82.6 MCH 26.5 MCHC 32.1 RDW 18.9 H Plt Count 222 Neut % (Auto) 71.5 Lymph % (Auto) 13.6 L [place] % (Auto) 13.9 Eos % (Auto) 0.7 L Baso % (Auto) 0.3 Neut # (Auto) 4900 Lymph # (Auto) 900 L [place] # (Auto) 1000 H Eos # (Auto) 0 Baso # (Auto) 0 Sodium 140 Potassium 4.2 Chloride 102 Carbon Dioxide 29 BUN 16 Creatinine 0.80 Estimated GFR > 60.0 BUN/Creatinine Ratio 20.0 Glucose 117 H Calcium 9.7 Total Bilirubin 0.7 AST 52 ALT 60 Alkaline Phosphatase 68 Total Protein 7.8 Albumin 4.6 Globulin 3.2 Albumin/Globulin Ratio 1.4 Lipase 74 Assessment & Plan Assessment & Plan narrative: Small-bowel obstruction appears to be resolving with conservative therapy. We will remove his NG tube today stimulate large bow el With Dulcolax. A placed mineral oil down the NG tube prior to removing it. Will start liquid diet today. Patient is ambulating. Appears to be resolving his problem. This may have just been an adynamic ileus.
[2019-01-05] MEDS: DEXTROSE 5%-0.45NS W/KCL 20MEQ 1,000 ML 50 MEQ IV (11:00)
[2019-01-05] MEDS: MINERAL OIL 473 ML OIL 60 ML PO (11:00)
[2019-01-05] MEDS: SIMETHICONE 80 MG TABLET PO ×4 (11:55→20:18)
[2019-01-05] MEDS: BISACODYL 10 MG SUPP PR ×2 (11:56→20:18)
--- NOTE | 2019-01-05 16:18 | CM.DANOTE ---
Addendum entered by Heidi Nava LPN 01/05/19 16:27: See also DCP Template: PCS section of chart. Original Note: Discharge Planning/Care Management DCP: assessment: case received, EMR reviewed. Discussed in Team Rounds. Pt is a 73 year old male who admitted yesterday afternoon to care of [facility]: Dr. Keller. Payer: Medicare and of Life PCP: Dr. Owen Shah Medicare and for Life. Pt being treated conservatively for a SBO and NGT has been in place. This is removed today and pt has been up and mobilizing independently in hallways to help in the healing process. Dr. Keller anticpates pt may be able to go home tomorrow. Pt is alert, oriented, independent community ambulator. Lives with his Cindy in [place]. DCP team will follow prn. At his point no needs for d/c are identified. Advanced directive, confirm from FAMILY Start: 01/04/19 17:07 Freq: Q24H Status: Active Protocol: Document 01/04/19 16:00 EM (Rec: 01/04/19 17:32 EM [id number]) Advance Directive, confirm on record Time 16:00 Person contacted Giles Copy received No Document 01/04/19 17:07 EM (Rec: 01/04/19 17:32 EM [id number]) Advance Directive, confirm on record Time 16:00 Person contacted Giles Copy received No
--- NOTE | 2019-01-05 16:37 | CM.DPC ---
DCP: continued: Checked in this afternoon with pt and his Cindy (Melvina) . Pt is just this evening starting full liquids and is hopeful he will keep progressing. Both say he just saw his PCP Drl. Weaver the day before admission to the hospital and want to make sure the records are sent made available to him. P: d/c likely sometime tomorrow or next day if pt continues to improve. Melvina will await a call and will come to hospital to machine operator hop picker her and be present while the d/c information is explained to him.
--- NOTE | 2019-01-05 19:44 | PC.NURSE ---
bowel function 1939 pt has had 2 BMs since NG tube removal. states the most recent BM burned a little bit. pt denies any discomfort currently. encouraged to notify RN if symptom persists or increases. pt is passing flatus and has been ambulating in hallway. tolerating full liquid diet without increase of symptoms.
[2019-01-05] MEDS: LORazepam 1 MG TABLET PO (23:22)
[2019-01-06] VITALS (23 sets, daily range): BP systolic 114–136; BP diastolic 56–93; PULSE 58–94; RESP 8–24; TEMP 36.5–38.4; O2SAT 90–96; BMI 24.9
--- NOTE | 2019-01-06 00:25 | PC.NURSE ---
C/O insomnia, states did not sleep well last night, tired but not able to sleep. Requested Lorazepam PO 1 mg. admin. Ambulated to the BR. voided & had moderated amount of formed stool. Denies any nausea & no C/O abdominal pain. Will cont. POC & monitor.
--- NOTE | 2019-01-06 00:55 | RT ---
01/05/2019 2350 Patient initial setup for home CPAP use. Device evaluated, assembled and applied to patient comfort and satisfaction. VSS and BS clear. Patient has no significant respiratory history or use of other respiratory devices or medications at home. Patient is now going to sleep.
[2019-01-06] MEDS: DEXTROSE 5%-0.45NS W/KCL 20MEQ 1,000 ML 50 MEQ IV (07:06)
[2019-01-06] MEDS: ONDANSETRON 4 MG/2 ML INJ IV (09:18)
[2019-01-06] MEDS: SIMETHICONE 80 MG TABLET PO (09:20)
[2019-01-06] MEDS: BISACODYL 10 MG SUPP PR (09:20)
--- NOTE | 2019-01-06 09:52 | DI.RAD.S_ITS ---
PROCEDURE: XR ACUTE ABDOMEN SERIES INDICATIONS: SBO TECHNIQUE: One view chest and two views of the abdomen were acquired. COMPARISON: [facility], CR, XR ABDOMEN MIN 2V, 01/05/2019, 7:57. FINDINGS: Surgical changes and devices: Interval removal of esophagogastric tube. Chest: Lungs are clear except for mild atelectasis left lung base. Heart size is normal. No pleural effusions. No pneumoperitoneum. Abdomen: Bowel gas pattern is again seen to be abnormal with persistent small bowel gas distention. No suspicious calcifications. Visualized solid organ contours appear normal. Bones: No suspicious bony lesions. IMPRESSION: Esophagogastric tube removal, persistent small bowel gas distention equivalent to that from one day ago. No subdiaphragmatic free air, mild left basilar atelectasis. Dictated by: Tr Hdez M.D. on 01/06/2019 at 10:33 Approved by: Tr Hdez M.D. on 01/06/2019 at 10:34
--- NOTE | 2019-01-06 09:54 | PM.PN.1 ---
Subjective Date Patient Seen: 01/06/19 Time Patient Seen: 09:56 Interval history: Patient has been in the hospital now day and a half with partial small-bowel obstruction yesterday I removed his NG tube after he began passing flatus and had a bowel movement. This morning he feels nauseated and is still passing gas and having stools however he feels more distended today. He is not drinking. Exam Vital Signs (past 8 hours): - 01/06/19 06:00 01/06/19 08:00 01/06/19 09:50 Temperature 97.8 F 97.7 F Pulse Rate 61 59 L Respiratory Rate 18 18 Blood Pressure 135/71 128/93 H Pulse Oximetry 95 93 95 Oxygen Delivery Method Room Air Oxygen Flow Rate 0 Narrative Exam Narrative: Patient is uncomfortable this morning. Abdomen is a bit more distended than yesterday. Minimal abdominal tenderness however. No masses. Objective Labs Result Diagrams: 01/05/19 07:35 01/04/19 10:05 Assessment & Plan Assessment & Plan narrative: Patient still has evidence of partial small-bowel obstruction. I will repeat his films this morning. Reassess the situation. It could be that he needs a laparotomy at some point.
--- NOTE | 2019-01-06 09:55 | PC.NURSE ---
Addendum entered by Shannan Cavazos R.N. 01/06/19 13:54: GI - NG placement by icu nurse completed w/o difficulty and immediate return 400ml brown fluid, xr completed. Addendum entered by Shannan Cavazos R.N. 01/06/19 13:15: GI - several attempts to pass ng both nostrils unsuccessful, coordinator notified and will have icu nurse attempt with smaller than 16. Addendum entered by Shannan Cavazos R.N. 01/06/19 11:05: GI - Adm fleets enema, pt cried out and stated painful w/lubricated insertion, no difficulty entering anal canal and once in pt fuad well, states no hx hemorrhoids, did have med soft stool w/trace blood, spoke to re pt pain and he did see stool result, in now for planned surg later today approx 1700, new orders rec'd ivf, explained procedure to pt and his spouse was reached on speaker phone, consent signed. Original Note: AM NOTE - pt is alert, up ambul hallway w/fww, key account representative standby, mild chronic hand tremors, underlying nausea, poor appetite and did not want any po this am, after ambul to br w/small loose stool, ret to bed, states abd feels bloated, bt are hypo rlq, ruq, active luq, llq, declined zantact, fuad chew, admin 4mg iv zofran, admin dulcolax suppos, some tenderness anal area, barrier cream provided, ambul again w/standby assist, in this am and diet changed to sips water and ice chips, to xr via wc.
--- NOTE | 2019-01-06 10:02 | CM.DPC ---
Addendum entered by Saskia Garza R.N. 01/06/19 13:00: It is noted that patient may be having a laparotomy possible resection today, according to surgeon, secondary to worsening of bowel obstructions. Patient complaining of nausea today. Original Note: DCP Cont: Discussed patient at team rounds. Allison, manager coding, at meeting. Updated her on recent note from surgeon yesterday, that patient is now on a clear liquid diet post removal of NG tube. She will be going by patient's room today with some brochures, and learning information at discharge. Let her know that according to latest note, spouse, Melvina, wants to be updated. P: DCP to continue to follow, and be available for any resources that patient or spouse may need upon discharge. Saskia Garza RN/Advertisement Distributor
[2019-01-06] MEDS: FLEETS ENEMA 1 EACH PR (10:36)
--- NOTE | 2019-01-06 10:59 | P.PN_ITS ---
Subjective Date Patient Seen: 01/06/19 Time Patient Seen: 10:58 Interval history: I have reviewed this morning's flat and upright x-ray of the abdomen. There is much more evidence of bowel obstruction on today's x-ray with copious gas in the small bowel much more than yesterday. There is less gas in the colon. My plan is laparotomy the patient understands and agrees Exam Vital Signs (past 8 hours): - 01/06/19 06:00 01/06/19 08:00 01/06/19 09:50 Temperature 97.8 F 97.7 F Pulse Rate 61 59 L Respiratory Rate 18 18 Blood Pressure 135/71 128/93 H Pulse Oximetry 95 93 95 Oxygen Delivery Method Room Air Oxygen Flow Rate 0 Narrative Exam Narrative: Abdominal distention with generalized moderate tenderness. Objective Labs Result Diagrams: 01/05/19 07:35 01/04/19 10:05 Assessment & Plan Assessment & Plan narrative: Patient has evidence of continued worsening small bowel obstruction. He failed conservative management with nasogastric decompression over the last 36 hours. X-rays this morning show worsening of small-bowel obstruction. I will do exploratory laparotomy possible resection to day as soon as an operating room is open. Patient understands and agrees and has no further questions
[2019-01-06] MEDS: LACTATED RINGERS 1,000 ML 125 ML IV ×2 (11:16→18:29)
[2019-01-06] MEDS: MORPHINE 2 MG/ML INJ IV ×2 (13:24→20:50)
--- NOTE | 2019-01-06 13:36 | DI.RAD.S_ITS ---
PROCEDURE: XR CHEST 1V INDICATIONS: confirm NGT placement TECHNIQUE: One view of the chest was acquired. COMPARISON: [facility], CT, CT ABDOMEN PELVIS W CON, 01/04/2019, 12:08. FINDINGS: Surgical changes and devices: The NG tube is in place, with its tip projecting to the stomach. Lungs and pleura: Lungs are clear. No pleural effusions or pneumothorax. Mediastinum: Mediastinal contours appear normal. Heart size is normal. Bones and chest wall: No suspicious bony lesions. Overlying soft tissues appear unremarkable. Small bowel obstruction is noted. IMPRESSION: NG tube tip projects to stomach. Small bowel obstruction. Dictated by: Christopher Liriano M.D. on 01/06/2019 at 14:10 Approved by: Christopher Liriano M.D. on 01/06/2019 at 14:11
--- NOTE | 2019-01-06 13:44 | PC.NURSE ---
1340- To bedside for NGT placement per order. Placed pt in high fowlers, explained procedure, obtained verbal consent to place NGT. Inserted 14 fr NGT x1 attempt. Pt tolerated well. Post insertion, auscultated air over stomach region and obtain copious amount of brown output. XR to confirm tube placement pending. Primary RN aware.
[2019-01-06] MEDS: LACTATED RINGERS 1,000 ML 42 ML IV (15:44)
--- NOTE | 2019-01-06 15:56 | SUR.HOLD ---
Pt c/o acid reflux. NG tube placed to LIS. Draining brown, green fluid.
[2019-01-06] MEDS: CEFTRIAXONE 2 GM/50 ML FROZ.PIGGY IV (17:54)
--- NOTE | 2019-01-06 18:00 | SUR.HOLD ---
1739 Dr Matthews notified pt's temp 101.1 and o2 applied for sat of 90-91%.
[2019-01-06] MEDS: BUPIVACAINE 0.5% W/ EPI (PF) VIAL 30 ML INJ (18:38)
[2019-01-06] MEDS: BACITRACIN 50,000 UNIT VIAL 50000 UNIT IRR (18:38)
--- NOTE | 2019-01-06 19:03 | P.OP_ITS ---
Operative Date/Time/Diagnoses Date of procedure: 01/06/19 Time of procedure: 18:57 Pre-op diagnosis: Small-bowel obstruction Post-op diagnosis: same Procedure & Clinicians Procedure: Exploratory laparotomy enterolysis for release of small-bowel obstruction Same procedure as scheduled: Yes Surgeon: Joe Hernandez Click Yes if Unassisted: Yes Anesthesia Type: General Operative Notes Findings: Patient had a mechanical small bowel obstruction secondary to right lower quadrant adhesions either congenital or inflammatory adhesions crossing over the terminal ileum creating mechanical small bowel obstruction Closure Type: primary Specimen(s): none sent Applied: catheter Estimated Blood Loss (mL): 50 Blood products transfused: none Procedure in detail: The patient was properly identified during surgical pause under general endotracheal anesthesia. He was prepped and draped in sterile fashion exposure the mid abdomen. Midline incision was made the abdomen explored. There was a fair amount of ascitic fluid within the peritoneal cavity which was aspirated. The small bowel was definitely obstructed was erythematous dilated and the distal terminal ileum was decompressed and there was a crossing band of adhesions obstructing the distal terminal ileum. These were either [place]'s bands congenital, or inflammatory from some prior process. The appendix was totally normal and was not removed. There were no other inflammatory changes in the cecum. The terminal ileum was completely mobilized away from those adhesions and the ileal cecal juncture was carefully inspected. There was no mass. Further examination of the entire small bowel from the ligament of Treitz to the ileocecal valve showed no other obstructing process. Palpation the liver and stomach and colon were normal. Parietal peritoneal surface is normal. There is no sign of tumor within the peritoneal cavity. The abdomen was irrigated with bacitracin saline aspirated dry the fascia closed with 1. PDS. The subcu irrigated the skin stapled sterile dressings applied this procedure was very well tolerated ending dictation. Complications: none Condition: stable Disposition: PACU
--- NOTE | 2019-01-06 19:13 | SUR.PHASEI ---
ASSUMED CARE OF PT AT THIS TIME. PT IN STABLE CONDITION, VSS. DRSG OBSERVED TO BE C/D/I. NG TUBE INTACT AND LOW INTERMITTENT SUCTION, DRAINAGE OBSERVED TO BE GREEN/BROWN IN COLOR. PT REPORTS PAIN 2/10 AT THIS TIME AND REPORTS THIS IS TOLERABLE. PT REQUESTS NO PAIN MEDICATION AT THIS TIME.
--- NOTE | 2019-01-06 19:14 | SUR.PHASEI ---
Report given to Allison
--- NOTE | 2019-01-06 19:24 | SUR.PHASEI ---
REPORT CALLED TO JEY BARRY ON ACUTE CARE FLOOR. PT IN STABLE CONDITION, VSS. IV SITE CLEAR AND INFUSING WITHOUT DIFFICULTLY. DRSG OBSERVED TO BE C/D/I. PT DENIES ANY NAUSEA AND REPORTS PAIN 3/10 AND REPORTS THIS IS TOLERABLE AT THIS TIME. PT ALERT AND TALKING TO RN AT THIS TIME. PT WILL BE TRANSFERRED TO ACUTE CARE FLOOR.
--- NOTE | 2019-01-06 19:31 | SUR.PHASEI ---
PT BEING TRANSFERRED TO ACUTE CARE FLOOR AT THIS TIME.
--- NOTE | 2019-01-06 19:48 | SUR.PHASEI ---
PT TRANSFERRED TO ACUTE CARE FLOOR IN STABLE CONDITION, VSS. BEDSIDE REPORT GIVEN TO JEY BARRY. NO CHANGE IN PT CONDITION FROM PACU, TRANSFERRED CARE OF PT TO JEY BARRY AT THAT TIME.
--- NOTE | 2019-01-06 20:58 | PC.NURSE ---
SOLANGE TO SHIMA,PILLOW USED WHEN COUGHING. ICE PACK IN PLACE.CHANDLER IS PATENT,MICH TO BRIGIDA
[2019-01-06] MEDS: LORazepam 2 MG/ML INJ 1 MG IV (22:20)
[2019-01-07] VITALS (14 sets, daily range): BP systolic 120–148; BP diastolic 63–84; PULSE 73–86; RESP 18–24; TEMP 37–37.6; O2SAT 87–95
--- NOTE | 2019-01-07 02:59 | PC.NURSE ---
Addendum entered by Shalonda Eller R.N. 01/07/19 06:30: Nasogastric tube removed at 0630, per MD order. Addendum entered by Shalonda Eller R.N. 01/07/19 03:03: Patient has a one to one sitter due to confusion and pulling at lines. Original Note: Patient is having intermittent periods of confusion. Sleeps for approximately 15-25 minutes at a time, after he awakens he tries to pull at multiple lines ie. (Nasogastric tube and Araujo catheter) and demands to get up and go to the bathroom. The LEAN LEADER's will and I try to reorient him to the environment in which his demeanor calms and he falls back asleep.
[2019-01-07] MEDS: LACTATED RINGERS 1,000 ML 125 ML IV (03:44)
[2019-01-07] MEDS: DEXTROSE 5%-0.45NS W/KCL 20MEQ 1,000 ML 84 MEQ IV ×2 (06:38→18:10)
[2019-01-07] MEDS: SIMETHICONE 80 MG TABLET PO ×4 (06:38→20:39)
[2019-01-07] MEDS: ENOXAPARIN 40 MG/0.4 ML SYRINGE SUBCUT (08:49)
[2019-01-07] MEDS: PANTOPRAZOLE 40 MG VIAL IV (08:50)
[2019-01-07] MEDS: MORPHINE 2 MG/ML INJ IV ×2 (08:50→16:05)
--- NOTE | 2019-01-07 10:30 | PC.NURSE ---
Addendum entered by Shannan Cavazos R.N. 01/07/19 14:19: RESP - pt lightly snoring and 02 sat decr to 87-88% ra, replaced nc at 2l and sat returned quickly to 92%. Addendum entered by Shannan Cavazos R.N. 01/07/19 13:45: GI/MS/PAIN - fuad sips apple juice, discussed pain mgt, dosages, timing, first ambul hallway this afternoon, up w/fww, commissioned sales associate standby assist and ambul entire hallway and then ret bed, bed alarm set, prefers to wait until later for any addl morphine. Original Note: AM NOTE - pt is alert, oriented, moderately restless, up to chair, then back to bed, dozed awhile then up to dangle position, discussed pain mgt and given 2mg iv morphine and then pt able to sit in chair calmly, then again back to bed for longer nap, pt is aware that he was impulsive during night, oriented, denies nausea, not taking in more than a few sips this am, abd is mildly distended, dsg w/shadow drainage at distal end, denies nausea, given pillow splint for occassional belching, cough, 2l 93%, hr 84.
--- NOTE | 2019-01-07 11:02 | PT.IIE ---
Current Diagnoses Partial intestinal obstruction, unspecified as to cause (01/04/19) Surgery Performed Operation Date: 01/06/19 16:00 Actual Procedures p laparotomy for lysis of adhesions for bowel obstruction - Joe Hernandez MD Medical History (Last Reviewed 01/05/19 @ 07:03 by Momo López DO) Abnormal endoscopy of upper gastrointestinal tract (Acute) Chronic back pain (Acute) Chronic fatigue (Acute) Essential tremor (Acute) Pre-diabetes (Acute) Weakness of left lower extremity (Acute) Physical Therapy Inpatient Evaluation/Re-Eval M1 PT/OT-IP Prior Functional Status Start: 01/07/19 12:48 Freq: NEEDED Status: Active Protocol: Document 01/07/19 11:02 AB (Rec: 01/07/19 13:09 AB [id number]) Medical Review Prior Functional Status Medical History Reviewed Yes Communication able to make needs known Mobility and Gait pt stated that he is independent with all mobilities and ambulation without AD Social History Household Members spouse Living Arrangements House Number of Floors (Floors) 3 or More Floors Number of Stairs To Enter/Railing? pt lives on a split level house has 2 steps with bilateral wide rails to the porch (can only hold on to 1 rail at a time) and then one more step to get into the house has 2 steps without rails to the living room hs 6 steps with R rail descending to the basement Home Environment Standard Height Toilet Walk in Shower Home Equipment Hand Held Shower Grab Bars Near Toilet Grab Bars In Shower Additional Social History Comment has a standard walker, 2 hiking poles M2 PT-IP Current Condition Start: 01/07/19 12:48 Freq: NEEDED Status: Active Protocol: Document 01/07/19 11:02 AB (Rec: 01/07/19 13:09 AB [id number]) Physical Therapy Current Condition Current Condition Evaluation Date 01/07/19 Treatment Diagnosis SBO s/p ex-lap; difficulty in walking Onset Date 01/04/19 Precautions Abdominal Surgery Precautions Log Roll Lifting Restrictions Gait Belt above Incisional Area M3 PT-IP Subjective Start: 01/07/19 12:48 Freq: NEEDED Status: Active Protocol: Document 01/07/19 11:02 AB (Rec: 01/07/19 13:09 AB [id number]) Subjective Physical Therapy Visit Type Type Initial Evaluation Visit Start Time 11:02 Visit Stop Time 11:41 Total Visit Minutes 39 Number of TELEPHONE DIAPHRAGM ASSEMBLER Visits 0 Physical Therapy Visit Comments Patient Comments pt agreeable to do PT Therapy Pain Assessment Pain When Pain Assessed At Rest Pain Present Pain Present Pain Reported Location abdomen Intensity 3 Scale Used Numeric (1 - 10) Pain Management Techniques Re-positioning Timing of Activity with Medications M4 PT-IP Mobility and Gait Start: 01/07/19 12:48 Freq: NEEDED Status: Active Protocol: Document 01/07/19 11:02 AB (Rec: 01/07/19 13:09 AB [id number]) PT-Bed Mobility Assessment Rolling Type of Rolling Log Rolling Level of Assist Maximal Assistance 1 Person Assistance Supine to Sit Supine to Sit Maximum Assistance 1 Person Assistance PT-Transfer Assessment Sit to and From Stand Sit to and from Stand Moderate Assistance 1 Person Assistance Use of Upper Extremities Equipment Transfer Assistive Device Gait Belt Front Wheeled Walker Orthotic/Prosthetic Devices or Brace: No Transfers Transfer Destination Toilet Transfer Technique pt ambulated using FWW Transfer Ability Level of Assist Moderate Assistance 1 Person Assistance Use of Upper Extremities Comments Mobility Comments O2 sat at room air 91% pt completed bed mobility supine to sit max A and max cues for log roll. pt was able to sit on EOB SBA. pt requested to use the toilet and completed sit to stand mod A and cues. (+) UE tremors during mobility. pt was able to ambulate to the toilet using FWW mod A and cues. pt completed sit to stand from the toilet using grab bar mod A and cues and ambulated to the chair using FWW mod A and cues. pt agreed to sit up on chair. call light and table placed within reach. Gait Assessment Gait Gait Assistance Required: Moderate Assistance Distance (Feet) 10 Able to Maintain Weight Bearing Status Yes During Gait Assistive Devices Assistive Device Gait Belt Front Wheeled Walker Orthotic/Prosthetic Devices or Brace: No Gait Deviations General Gait Pattern Antalgic Decreased Stride Length Decreased Feet Clearance Factors Limiting Gait Function Factors Limiting Gait Function Decreased Activity Tolerance Decreased Strength Pain Poor Balance Poor Safety Awareness Comments Gait Comments pt with L foot drop but was able to mange LLE during ambulation with increase hip/ knee flexion. pt with tremors on UE/trunk during ambulation affecting ambulation PT-Balance Assessment Sitting Balance and Reactions Static Sitting Balance Ability Good Dynamic Sitting Balance Ability Good Standing Balance and Reactions Static Standing Balance Ability Fair Dynamic Standing Balance Ability Fair Device Used FWW M5 PT-IP Objective Assessments Start: 01/07/19 12:48 Freq: NEEDED Status: Active Protocol: Document 01/07/19 11:02 AB (Rec: 01/07/19 13:09 AB [id number]) Orientation Orientation/Cognition Level of Alertness Alert Orientation Name Place Situation Language Function Ability Hard of Hearing Safety Awareness Decreased Safety Awareness Memory Description Short Term Impaired Gross Range of Motion Lower Extremity ROM Assessment Within Functional Limits Strength Lower Extremity Strength Assessment Left Impaired Hip 3-/5 Knee 3-/5 Ankle 1/5 Sensation Assessment Sensation Gross Sensation WNL Muscle Tone Muscle Tone WNL Yes M6 PT-IP Treatment Start: 01/07/19 12:48 Freq: NEEDED Status: Active Protocol: Document 01/07/19 11:02 AB (Rec: 01/07/19 13:09 AB [id number]) Physical Therapy Treatment Education Education Provided Precautions Safety M7 PT-IP Assessment and Plan Start: 01/07/19 12:48 Freq: NEEDED Status: Active Protocol: Document 01/07/19 11:02 AB (Rec: 01/07/19 13:09 AB [id number]) PT Summary Assessment and Plan Potential Rehabilitation Potential Good Status of Condition at Evaluation Evolving Summary Impairments Pain ROM Strength Balance Coordination Sensation Tone Cognition Bed Mobility Transfers Gait Activity Tolerance Assessment Summary pt requiring mod A with mobiltiy and presents with decrearse activity tolerance. d/c plan depending on progress but at this time, pt may require SNF rehab to strengthening and mobility. will continue to assess. Goals Bed Mobility Goal Independent Transfer Goal Independent Front Wheeled Walker Gait Goal Independent Front Wheel Walker Gait Distance 200 Other Goals up/down 1 steps with 1 rail up/down 1 step using FWW Days to Meet Goals 10 Frequency of Treatment Frequency Of Treatment Once a Day Treatment Plan Physical Therapy Treatment Plan Bed Mobility Training Transfer Training Gait Training Therapeutic Exercise Balance Retraining Post Op Education Discharge Planning Hot or Cold Pack Neuromuscular Re-ed Coordination Retraining Manual Therapy Other Recommendations and Next Treatment ambulation, bed mobility Focus Recommendations To Nursing Amount of Assist Needed 1 Person Assist Discharge Recommendations PT Discharge Recommendations Home with 24/7 Assist Home Health SNF Rehab Other Discharge Recommendations depending on progress: SNF vs home with 24/7 assist and homehealth PT Equipment Needed for Home Before FWW if not safe without AD Discharge
--- NOTE | 2019-01-07 11:28 | CM.DPC ---
Addendum entered by Saskia Garza R.N. 01/07/19 13:07: Went ahead and called patient's , Cindy, to reach out to her regarding options as patient gets ready for discharge. Patient has not yet worked with physical therapy team. Did discuss possible skilled rehab with patient's , but she is hoping that he can go home, and feels that it's a little early to tell. She did mention that it would be nice to have someone come out to help him with showers when he goes home. Did mention home health option as well, including bath aide. She will be up here to see patient today, and will discuss discharge planning as he gets more stable. Original Note: DCP Cont: Patient has had a one on one caregiver monitoring patient, for he has had some noted agitation post surgery. He has been sleeping at this time. Patient does have physical therapy orders, but has not yet been able to work with them due to medical instability. P: DCP will follow closely. It is unclear at this time if patient may need skilled versus home, but will continue to assess when patient is more stable. Saskia Garza RN/Cut Off Machine Helper
[2019-01-07] MEDS: BISACODYL 10 MG SUPP PR (20:36)
[2019-01-07] MEDS: OXYCODONE/ACETAMINOPHEN 5/325 TABLET 1 TAB PO (20:39)
--- NOTE | 2019-01-07 22:52 | PC.NURSE ---
Pt awake and alert. Cooperative. Forgetful at times. Araujo in place draining yellow urine. Pt turning self in bed without issues. Pain resolved with morphine and percocet. Trialled on RA and stats dropped to high 80s. Placed back on 2L O2 and stats returned to 92%. Lower abdomen dressing intact with shadow drainage at start of shift with no change at end of shift.
--- NOTE | 2019-01-07 23:33 | PM.PN.1 ---
Subjective Date Patient Seen: 01/07/19 Time Patient Seen: 19:00 Interval history: Feeling poorly overall Passing minimal gas No bowel movement Feels quite fatigued Less nausea Exam Vital Signs (past 8 hours): - 01/07/19 15:50 01/07/19 19:10 01/07/19 20:52 Temperature 98.6 F Pulse Rate 73 Respiratory Rate 20 Blood Pressure 134/84 Pulse Oximetry 92 92 92 Oxygen Delivery Method Nasal Cannula Oxygen Flow Rate 2 Narrative Exam Narrative: Moderately well-appearing Breathing comfortably Abdomen is still quite distended but soft Dressings dry No peritoneal signs Objective Labs Result Diagrams: 01/05/19 07:35 01/04/19 10:05 Assessment & Plan Assessment & Plan narrative: 73-year-old man postoperative day 1 status post lysis of terminal ileal band for small bowel obstruction Minimal reconstitution of bowel function at this point Do not advance diet Will check electrolytes in the morning Making good urine output
[2019-01-08] VITALS (15 sets, daily range): BP systolic 120–149; BP diastolic 66–93; PULSE 67–89; RESP 16–21; TEMP 36.6–37.5; O2SAT 3–97
[2019-01-08] MEDS: OXYCODONE/ACETAMINOPHEN 5/325 TABLET 1 TAB PO (01:00)
--- NOTE | 2019-01-08 01:12 | PC.NURSE ---
Addendum entered by Crystal Kline R.N. 01/08/19 05:16: O2 sat 88% earlier when VS checked so increased oxygen to 3L/min. At 0505 oximeter alarming and patient asleep, mouth breathing, with sat of 83%. Placed cannula in mouth and now sat is 97% so decreased back to 2L/min. Addendum entered by Crystal Kline R.N. 01/08/19 04:20: Medicated earlier with Zofran for nausea which did not alleviate the discomfort so then medicated with Ativan. Patient now drowsy but denies nausea. Original Note: Patient is alert and oriented except for day of month. Breath sounds with expiratory wheezes throughout; on oxygen at 2L/min per NC with sat of 91%. HRR. Denies nausea. BT hypoactive and abdomen appears distended. Dressing intact with shadow drainage noted and outlined. Complains of 5/10 pain but increased to 6/10 pain with movement; medicated with Percocet and instructed to call if pain not sufficiently controlled as could also have Morphine. Able to turn in bed but wanting to lie on back. Indwelling catheter is patent. Refusing SCD's despite information re: prevention of DVT. Refusing to use CPAP stating it's too late to use. Fall risk score is moderate; bed alarm is activated.
[2019-01-08] MEDS: ONDANSETRON 4 MG/2 ML INJ IV (02:24)
[2019-01-08] MEDS: LORazepam 2 MG/ML INJ 1 MG IV ×2 (02:54→16:01)
[2019-01-08] MEDS: DEXTROSE 5%-0.45NS W/KCL 20MEQ 1,000 ML 84 MEQ IV ×2 (05:36→17:07)
[2019-01-08 06:12] LABS: Add Manual Diff / Slide Review NO; Basophils Absolute Auto 0 /uL (0-100); Basophils Percent Auto 0.2 % (0-2); Eosinophils Absolute Auto 100 /uL (0-450); Eosinophils Percent Auto 2.7 % (2-4); Hematocrit 40.8 % (41-53); Hemoglobin 12.9 g/dL (13.5-17.5); Lymphocytes Absolute Auto 500 /uL (1100-4500); Lymphocytes Percent Auto 11.6 % (25-40); Mean Corpuscular HGB Conc 31.6 % (30-36); Mean Corpuscular Hemoglobin 26.6 PG (26-34); Monocytes Absolute Auto 1000 /uL (0-900); Monocytes Percent Auto 24.5 % (3-14); Neutrophils Absolute Auto 2400 /uL (1500-7000); Platelet Count 207 X10^3/uL (150-400); Red Blood Cell Count 4.85 X10^6/uL (4.5-5.9); Red Cell Distribution Width 18.8 % (11.6-14.8); White Blood Cell Count 3.9 X10^3/uL (4.5-11.0)
[2019-01-08 06:15] LABS: BUN Creatinine Ratio 17.1 (6-22); Blood Urea Nitrogen 12 mg/dL (9-20); Calcium 8.2 mg/dL (8.4-10.2); Carbon Dioxide 33 mmol/L (22-32); Chloride 99 mmol/L (98-107); Estimated Glomerular Filt Rate > 60.0 mL/min (>60); Glucose 128 mg/dL (80-110); HEMOLYSIS < 15 (0-50); Magnesium 1.9 mg/dL (1.6-2.3); Potassium 4.1 mmol/L (3.4-5.1); Sodium 136 mmol/L (137-145)
[2019-01-08] MEDS: PANTOPRAZOLE 40 MG VIAL IV (09:06)
[2019-01-08] MEDS: ENOXAPARIN 40 MG/0.4 ML SYRINGE SUBCUT (09:06)
[2019-01-08] MEDS: SIMETHICONE 80 MG TABLET PO ×4 (09:07→20:22)
--- NOTE | 2019-01-08 10:25 | CM.DPC ---
DCP: continued: Case again received and last few days reviewed. See that pt did need surgery and this was done on 01/06 1800: Exploratory Laparotomy/ALEXIA. PT did see pt last yesterday for first time. OT order is obtained now to help in the overall assessment of pt's functional abilities and to help in the determination of d/c plan disposition. Will check in with pt and his and follow accordingly.
--- NOTE | 2019-01-08 11:13 | PM.PNPO.1 ---
Subjective Date Patient Seen: 01/08/19 Time Patient Seen: 11:13 Interval history: Minimal flatus, no nausea or emesis. Pain well controlled. Exam Vital Signs (past 8 hours): - 01/08/19 04:24 01/08/19 05:05 01/08/19 05:15 Temperature 98.5 F Pulse Rate 73 Respiratory Rate 19 Blood Pressure 144/77 H Pulse Oximetry 92 83 L 97 01/08/19 05:38 01/08/19 08:15 01/08/19 09:00 Temperature 98.2 F Pulse Rate 72 Respiratory Rate 18 Blood Pressure 123/82 Pulse Oximetry 94 94 93 Fraction of Inspired Oxygen 28 Oxygen Delivery Method Nasal Cannula Oxygen Flow Rate 2 Narrative Exam Narrative: Gen-Adult male A &O x 3 no acute distress Chest-Non labored resp Abdomen-Distended, soft, compressible, incision CDI Objective Labs Result Diagrams: 01/08/19 05:35 01/08/19 05:35 Labs: Laboratory Results - last 24 hr 01/08/19 01/08/19 05:35 05:35 WBC 3.9 L RBC 4.85 Hgb 12.9 L Hct 40.8 L MCV 84.0 MCH 26.6 MCHC 31.6 RDW 18.8 H Plt Count 207 Neut % (Auto) 61.0 Lymph % (Auto) 11.6 L [place] % (Auto) 24.5 H Eos % (Auto) 2.7 Baso % (Auto) 0.2 Neut # (Auto) 2400 Lymph # (Auto) 500 L [place] # (Auto) 1000 H Eos # (Auto) 100 Baso # (Auto) 0 Sodium 136 L Potassium 4.1 Chloride 99 Carbon Dioxide 33 H BUN 12 Creatinine 0.70 Estimated GFR > 60.0 BUN/Creatinine Ratio 17.1 Glucose 128 H Calcium 8.2 L Magnesium 1.9 Assessment & Plan Post-op Postoperative Procedures Operation Date: 01/06/19 16:00 Actual Procedures Side Surgeon p laparotomy for lysis of adhesions for bowel obstruction Joe Hernandez MD Postoperative plan narrative: POD 2 sp exlap lysis of adhesions for SBO doing well. urine output adequate. -Keep at clear liquid diet until return of bowel function, somewhat distended passing minimal flatus -chemical VTE prophylaxis Time Spent With Patient less than 15 minutes
--- NOTE | 2019-01-08 11:15 | PT.IPTN ---
Current Diagnoses Partial intestinal obstruction, unspecified as to cause (01/04/19) Surgery Performed Operation Date: 01/06/19 16:00 Actual Procedures p laparotomy for lysis of adhesions for bowel obstruction - Joe Hernandez MD Physical Therapy Treatment Note M2 PT-IP Current Condition Start: 01/07/19 12:48 Freq: NEEDED Status: Active Protocol: Document 01/07/19 11:02 AB (Rec: 01/07/19 13:09 AB [id number]) Physical Therapy Current Condition Current Condition Evaluation Date 01/07/19 Treatment Diagnosis SBO s/p ex-lap; difficulty in walking Onset Date 01/04/19 Precautions Abdominal Surgery Precautions Log Roll Lifting Restrictions Gait Belt above Incisional Area M3 PT-IP Subjective Start: 01/07/19 12:48 Freq: NEEDED Status: Active Protocol: Document 01/08/19 11:15 GGD (Rec: 01/08/19 12:20 GGD [id number]) Subjective Physical Therapy Visit Type Type Treatment Note Visit Start Time 10:45 Visit Stop Time 11:16 Total Visit Minutes 31 Number of CONTACT CLERK Visits 1 Physical Therapy Visit Comments Patient Comments Pt states he is very tired. Therapy Pain Assessment Pain When Pain Assessed At Rest Pain Present Pain Present Pain Reported M4 PT-IP Mobility and Gait Start: 01/07/19 12:48 Freq: NEEDED Status: Active Protocol: Document 01/08/19 11:15 GGD (Rec: 01/08/19 12:20 GGD [id number]) PT-Bed Mobility Assessment Rolling Type of Rolling Log Rolling Level of Assist Minimal Assistance 1 Person Assistance Supine to Sit Supine to Sit Contact Guard Assistance 1 Person Assistance PT-Transfer Assessment Sit to and From Stand Sit to and from Stand Minimal Assistance 1 Person Assistance Use of Upper Extremities Equipment Transfer Assistive Device Gait Belt Front Wheeled Walker Orthotic/Prosthetic Devices or Brace: No Transfers Transfer Destination Bed Transfer Ability Level of Assist Contact Guard Assistance 1 Person Assistance Use of Upper Extremities Comments Mobility Comments O2 on room 93% at rest with activity 91-89% Gait Assessment Gait Gait Assistance Required: Contact Guard Assist 1 Person Assist Distance (Feet) 500 Assistive Devices Assistive Device Gait Belt Front Wheeled Walker Orthotic/Prosthetic Devices or Brace: No Gait Deviations General Gait Pattern Antalgic Decreased Stride Length Decreased Feet Clearance Factors Limiting Gait Function Factors Limiting Gait Function Decreased Activity Tolerance Decreased Strength Pain Poor Balance Poor Safety Awareness M5 PT-IP Objective Assessments Start: 01/07/19 12:48 Freq: NEEDED Status: Active Protocol: Document 01/07/19 11:02 AB (Rec: 01/07/19 13:09 AB [id number]) Orientation Orientation/Cognition Level of Alertness Alert Orientation Name Place Situation Language Function Ability Hard of Hearing Safety Awareness Decreased Safety Awareness Memory Description Short Term Impaired Gross Range of Motion Lower Extremity ROM Assessment Within Functional Limits Strength Lower Extremity Strength Assessment Left Impaired Hip 3-/5 Knee 3-/5 Ankle 1/5 Sensation Assessment Sensation Gross Sensation WNL Muscle Tone Muscle Tone WNL Yes M6 PT-IP Treatment Start: 01/07/19 12:48 Freq: NEEDED Status: Active Protocol: Document 01/07/19 11:02 AB (Rec: 01/07/19 13:09 AB [id number]) Physical Therapy Treatment Education Education Provided Precautions Safety M7 PT-IP Assessment and Plan Start: 01/07/19 12:48 Freq: NEEDED Status: Active Protocol: Document 01/08/19 11:15 GGD (Rec: 01/08/19 12:20 GGD [id number]) PT Summary Assessment and Plan Summary Assessment Summary Pt improving with mobility. He needed less assist and progressing gait distance. He did fatigue with activity. He had mild unsteadiness with gait , but no LOB with FWW. Treatment Plan Physical Therapy Treatment Plan Bed Mobility Training Transfer Training Gait Training Therapeutic Exercise Balance Retraining Post Op Education Discharge Planning Hot or Cold Pack Neuromuscular Re-ed Coordination Retraining Manual Therapy Recommendations To Nursing Amount of Assist Needed 1 Person Assist Discharge Recommendations PT Discharge Recommendations Home with Assistance Home Health SNF Rehab
--- NOTE | 2019-01-08 11:17 | P.PN_ITS ---
Subjective Date Patient Seen: 01/08/19 Time Patient Seen: 11:13 Interval history: Minimal flatus, no nausea or emesis. Pain well controlled. Exam Vital Signs (past 8 hours): - 01/08/19 04:24 01/08/19 05:05 01/08/19 05:15 Temperature 98.5 F Pulse Rate 73 Respiratory Rate 19 Blood Pressure 144/77 H Pulse Oximetry 92 83 L 97 01/08/19 05:38 01/08/19 08:15 01/08/19 09:00 Temperature 98.2 F Pulse Rate 72 Respiratory Rate 18 Blood Pressure 123/82 Pulse Oximetry 94 94 93 Fraction of Inspired Oxygen 28 Oxygen Delivery Method Nasal Cannula Oxygen Flow Rate 2 Narrative Exam Narrative: Gen-Adult male A &O x 3 no acute distress Chest-Non labored resp Abdomen-Distended, soft, compressible, incision CDI Objective Labs Result Diagrams: 01/08/19 05:35 01/08/19 05:35 Labs: Laboratory Results - last 24 hr 01/08/19 01/08/19 05:35 05:35 WBC 3.9 L RBC 4.85 Hgb 12.9 L Hct 40.8 L MCV 84.0 MCH 26.6 MCHC 31.6 RDW 18.8 H Plt Count 207 Neut % (Auto) 61.0 Lymph % (Auto) 11.6 L [place] % (Auto) 24.5 H Eos % (Auto) 2.7 Baso % (Auto) 0.2 Neut # (Auto) 2400 Lymph # (Auto) 500 L [place] # (Auto) 1000 H Eos # (Auto) 100 Baso # (Auto) 0 Sodium 136 L Potassium 4.1 Chloride 99 Carbon Dioxide 33 H BUN 12 Creatinine 0.70 Estimated GFR > 60.0 BUN/Creatinine Ratio 17.1 Glucose 128 H Calcium 8.2 L Magnesium 1.9 Assessment & Plan Post-op Postoperative Procedures Operation Date: 01/06/19 16:00 Actual Procedures Side Surgeon p laparotomy for lysis of adhesions for bowel obstruction Joe Hernandez MD Postoperative plan narrative: POD 2 sp exlap lysis of adhesions for SBO doing well. urine output adequate. -Keep at clear liquid diet until return of bowel function, somewhat distended passing minimal flatus -chemical VTE prophylaxis Time Spent With Patient less than 15 minutes
--- NOTE | 2019-01-08 12:50 | OT.IP.EVAL ---
Current Diagnoses Partial intestinal obstruction, unspecified as to cause (01/04/19) Surgery Performed Operation Date: 01/06/19 16:00 Actual Procedures p laparotomy for lysis of adhesions for bowel obstruction - Joe Hernandez MD Past Medical History (Last Reviewed 01/05/19 @ 07:03 by Momo López DO) Abnormal endoscopy of upper gastrointestinal tract (Acute) Chronic back pain (Acute) Chronic fatigue (Acute) Essential tremor (Acute) Pre-diabetes (Acute) Weakness of left lower extremity (Acute) Occupational Therapy Inpatient Evaluation/Re-Eval M1 PT/OT-IP Prior Functional Status Start: 01/07/19 12:48 Freq: NEEDED Status: Active Protocol: Document 01/08/19 12:50 PJM (Rec: 01/08/19 17:02 PJM [email or web address]) Medical Review Prior Functional Status Medical History Reviewed Yes Communication WNL Mobility and Gait Pt states he is independent with all mobility without a device in the house. He uses trekking poles when out walking his dog. He denies any falls. Activities of Daily Living and IADL's Pt states he was independent with all self care and standing to shower. 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 Prior Functional Level (Other details) supportive can provide 24 hr assist per pt Social History Household Members spouse Living Arrangements House Number of Floors (Floors) 3 or More Floors Number of Stairs To Enter/Railing? Pt lives in a split level house. -2 steps with bilateral wide rails to the porch (can only hold on to 1 rail at a time) and then one more step to get into the house. -2 steps without rails to sunken living room (rarely uses) -6 steps with R rail descending to the lower level( rarely uses) Home Environment Standard Height Toilet Walk in Shower Home Equipment Front Wheel Walker Hand Held Shower Grab Bars Near Toilet Grab Bars In Shower Employment Status Retired M2 OT-IP Current Condition Start: 01/08/19 16:45 Freq: Status: Active Protocol: Document 01/08/19 12:50 PJM (Rec: 01/08/19 17:02 PJM [email or web address]) Occupational Therapy Current Condition Current Condition Evaluation Date 01/08/19 Treatment Diagnosis decreased self care, mobility, activity tolerance s/p SBO w/ ex lap 01/06 Diagnosis Onset Date 01/04/18 Post Operative Precautions Abdominal Surgery Precautions Log Roll Lifting Restrictions Gait Belt above Incisional Area Other Precautions fall risk, abdominal incision M3 OT- IP Subjective and Pain Start: 01/08/19 16:45 Freq: Status: Active Protocol: Document 01/08/19 12:50 PJM (Rec: 01/08/19 17:02 PJ [email or web address]) OT- Subjective Occupational Therapy Visit Type Type Initial Evaluation Visit Start Time 12:24 Visit Stop Time 12:50 Total Visit Minutes 26 Notes not here this session. Nausea limiting participation this session. Occupational Therapy Visit Comments Patient Comments I just don't feel like eating anything. Patient/Caregiver Goals to be able to eat regular food and go home. OT Pain Assessment Pain When Pain Assessed After Treatment Pain Present Pain Present Denied Pain M4 OT- IP ADL's Start: 01/08/19 16:45 Freq: Status: Active Protocol: Document 01/08/19 12:50 PJM (Rec: 01/08/19 17:02 [facility] [id number]) OT [id number] General Evaluation Self-Feeding Ability Independent Comments OT Self-Feeding Comments poor appetite, nausea reported OT ADL-Grooming General Evaluation Grooming Ability Standby Assistance Areas Needing Assistance Face Washing Comments OT Grooming Comments after set up in bed OT ADL-Oral Care Comments Oral Care Comments pt declined this session OT ADL-Dressing General Eval Upper Body Dressing Ability Standby Assistance Lower Body Dressing Ability Maximum Assistance OT ADL-Toileting General Evaluation Toileting Ability Total Assistance Areas Needing Assistance Empty Catheter or Colostomy Comments OT Toileting Comments curtis in place OT ADL-Bathing Comments OT Bathing Comments to be assessed as activity tolerance improves M5 OT- IP IADL's Start: 01/08/19 16:45 Freq: Status: Active Protocol: Document 01/08/19 12:50 PJM (Rec: 01/08/19 17:02 [facility] [email or web address]) OT-Instrumental Activities of Daily Living Deficits IADL Deficits Identified Deficits Home Safety Awareness Awareness of Need for Assistance at Home Good Awareness Medication Management Medication Management No Deficits Identified Money Management Money Management No Deficits Identified Meal Preparation Meal Preparation Caregiver Provides Assist Meal Preparation Comments to assist until pt able Environmental Services Tech Environmental Services Tech Caregiver Provides Assist Environmental Services Tech Comments to assist until pt able Driving Driving Caregiver Provides Assist Driving Comments to assist until pt able M6 OT- IP Functional Cognition Start: 01/08/19 16:45 Freq: Status: Active Protocol: Document 01/08/19 12:50 PJM (Rec: 01/08/19 17:02 PJM [email or web address]) Cognitive Factors Limiting Selfcare Function Cognitive Ability Level of Alertness Alert Patient Orientation Name Month Date Year Place Situation Attention Span Ability Capable of Focused Attention Unable to Sustain Attention Ability to Follow Commands Able to Follow One Step Commands Cognitive Comments Cognitive Assessment Comments further observations to follow , pt distracted by nausea this session OT- Vision and Hearing OT- Hearing Assessment OT- Hearing Assessment WFL OT- Vision Assessment Visual Acuity WFL Glasses For Reading Vision Assessment Comments Pt denies any recent vision changes. 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 Hand Dominance Right OT- Coordination Assessment Comments Coordination Comments pt has B essential tremor OT-Muscle Tone Assessment Muscle Tone WNL Yes OT Sensation Assessment Comments Summary Comments BUE WNL per pt Edema Edema Absent M9 OT- IP Assessment and Plan Start: 01/08/19 16:45 Freq: Status: Active Protocol: Document 01/08/19 12:50 PJM (Rec: 01/08/19 17:02 PJM [email or web address]) OT Summary Assessment and Plan Potential Rehabilitation Potential Good Analytic Complexity at Evaluation Low Summary OT Impairments Strength Functional Cognition Functional Mobility Grooming Dressing Toileting Bathing Toilet Transfers Shower Transfers Assessment Summary Low complexity OT assessment completed on this 73 yr old male admitted with BSO, now s/ p ex lap to remove adhesions. Pt is normally independent with all self care and ambulates without a device.Pt currently has performance deficits in attention/ concentration, all functional mobility transfers, activity tolerance, standing grooming, lower body dressing, bathing and toileting. Began education re: adapted ADL techniques and bathroom safety equipment options Pt will benefit from OT services to address the goals below. Anticipate he will be able to return home with when medically stable and clears P.T. vs SNF pending progress here. not here to confirm how much assist she can provide. Goals Grooming Goal Independent Dressing Goal Standby Assistance Toileting Goal Independent Bathing Goal Standby Assistance Toilet Transfer Goal Independent Shower Transfer Goal Standby Assistance Patient/Caregiver Education Goal Demonstrate Post-Op Precautions Demonstrate Energy Conservation and Pacing Caregiver Independent Assisting Patient OT-Other Goals Grooming to be done standing at sink with no loss of balance. Days to Meet Goals 5 Frequency of Treatment Frequency Of Treatment Once a Day Treatment Plan OT Treatment Plan ADL Training Functional Mobility Patient/Family Education Discharge Planning Discharge Recommendations OT Discharge Recommendations Home with / Assist vs SNF Rehab pending progress Home Equipment Needs shower seat
[2019-01-08] MEDS: BISACODYL 10 MG SUPP PR (20:22)
--- NOTE | 2019-01-08 21:55 | PC.NURSE ---
Evening Shift Note- Patient in bed resting quietly with eyes closed. No complaints of pain or discomfort. PRN ATIvan given per patient request for complaints of anxiety. Patient reports decreased appitite and just dont wanna eat. Patient encouraged to try to eat. Gave patient an apple juice ENSURE with he like and finished. ASSISTANT COUNSEL took patient took patient for a walk around the unit this evening. [place] dressing changed this evening after the dressing was found with the tape rolled and pulled wth half the dressing not attached. patient tolerated.
[2019-01-09] VITALS (20 sets, daily range): BP systolic 116–138; BP diastolic 72–85; PULSE 57–91; RESP 14–32; TEMP 36.4–37.2; O2SAT 71–97
--- NOTE | 2019-01-09 02:32 | PC.NURSE ---
Addendum entered by Crystal Kline R.N. 01/09/19 06:51: Up with walker and 2 assist to ambulate in [place]. Noted increase in chronic bilateral UE tremors. States he feels weak and tired but denies pain or nausea. Does well with supporting own weight but states I'm not doing well. RA sat after walking length of [place] was 91%. Coughing up thick clear mucus. Addendum entered by Crystal Kline R.N. 01/09/19 05:22: Up to [facility] with walker and 1 assist and had multiple small pieces of white mucoid/gel foamy stool. Back to bed and now has CPAP off. Original Note: Patient is drowsy but oriented. Breath sounds are CTA with oxygen at 3L/min per NC along with CPAP and sats maintaining mostly in low to mid 90's with occasional, brief desats. HRR. Denies nausea. BT present; abdomen remains distended and patient unsure if he has passed any flatus. Dressing to abdomen is CDI (changed on previous shift). Indwelling catheter is patent with urine director of outreach yellow tonight. Is able to turn but difficult to do so because it causes discomfort although when asked denies pain; assisting as needed. Wearing bilateral SCD's tonight. Fall risk score is moderate; bed alarm is activated.
[2019-01-09] MEDS: DEXTROSE 5%-0.45NS W/KCL 20MEQ 1,000 ML 84 MEQ IV (04:37)
--- NOTE | 2019-01-09 08:57 | PM.PN.1 ---
Subjective Date Patient Seen: 01/09/19 Time Patient Seen: 08:57 Interval history: Feeling reasonably well Passing flatus No significant bowel movement yet Still feels distended, not hungry Fully replaced for urinary retention on 12th Exam Vital Signs (past 8 hours): - 01/09/19 04:35 01/09/19 07:35 01/09/19 07:40 Temperature 98.1 F Pulse Rate 57 L Respiratory Rate 18 Blood Pressure 128/81 Pulse Oximetry 97 93 96 01/09/19 08:29 Temperature Pulse Rate Respiratory Rate Blood Pressure Pulse Oximetry 94 Fraction of Inspired Oxygen 24 Oxygen Delivery Method Nasal Cannula Oxygen Flow Rate 1 Narrative Exam Narrative: Appears well Breathing comfortably on room Regular rate and rhythm Abdomen still distended, tympanitic, minimally tender, wound clean dry and intact, adjacent ecchymosis Folly in place draining clear yellow urine Objective Labs Result Diagrams: 01/08/19 05:35 01/08/19 05:35 Assessment & Plan Assessment & Plan narrative: 73M POD3 s/p ex lap + lysis of terminal ileal band for small bowel obstruction, now passing flatus but no further reconstitution of bowel function. Patient no longer nauseated. Urinary retention with Araujo in place Do not advance diet be on clears today, awaiting more robust bowel function Checking electrolytes Continue Araujo catheter until 01/11 for urinary retention unless apparent discharge prior to this -started on tamsulosin On enoxaparin for DVT proph
[2019-01-09 09:44] LABS: BUN Creatinine Ratio 12.9 (6-22); Blood Urea Nitrogen 9 mg/dL (9-20); Calcium 8.6 mg/dL (8.4-10.2); Carbon Dioxide 30 mmol/L (22-32); Chloride 99 mmol/L (98-107); Estimated Glomerular Filt Rate > 60.0 mL/min (>60); Glucose 133 mg/dL (80-110); HEMOLYSIS < 15 (0-50); Magnesium 1.9 mg/dL (1.6-2.3); Potassium 3.9 mmol/L (3.4-5.1); Sodium 134 mmol/L (137-145)
[2019-01-09] MEDS: ENOXAPARIN 40 MG/0.4 ML SYRINGE SUBCUT (09:58)
[2019-01-09] MEDS: PANTOPRAZOLE 40 MG VIAL IV (10:01)
[2019-01-09] MEDS: SIMETHICONE 80 MG TABLET PO ×4 (10:02→20:54)
[2019-01-09] MEDS: GABAPENTIN 300 MG CAPSULE PO ×3 (10:02→20:54)
[2019-01-09] MEDS: TAMSULOSIN 0.4 MG CAPSULE 0.8 MG PO (10:02)
--- NOTE | 2019-01-09 10:12 | PT.IPTN ---
Current Diagnoses Partial intestinal obstruction, unspecified as to cause (01/04/19) Surgery Performed Operation Date: 01/06/19 16:00 Actual Procedures p laparotomy for lysis of adhesions for bowel obstruction - Joe Hernandez MD Physical Therapy Treatment Note M2 PT-IP Current Condition Start: 01/07/19 12:48 Freq: NEEDED Status: Active Protocol: Document 01/07/19 11:02 AB (Rec: 01/07/19 13:09 AB [id number]) Physical Therapy Current Condition Current Condition Evaluation Date 01/07/19 Treatment Diagnosis SBO s/p ex-lap; difficulty in walking Onset Date 01/04/19 Precautions Abdominal Surgery Precautions Log Roll Lifting Restrictions Gait Belt above Incisional Area M3 PT-IP Subjective Start: 01/07/19 12:48 Freq: NEEDED Status: Active Protocol: Document 01/09/19 09:30 AMB (Rec: 01/09/19 10:12 AMB [email or web address]) Subjective Physical Therapy Visit Type Type Treatment Note Visit Start Time 09:30 Visit Stop Time 10:00 Total Visit Minutes 30 Number of TOBACCO PREVENTION HEALTH EDUCATOR Visits 0 Physical Therapy Visit Comments Patient Comments Pt states he does not have pain as long as he doesn't move. Therapy Pain Assessment Pain When Pain Assessed During Mobility Pain Present Pain Present Pain Reported Location abdomen Intensity 2 M4 PT-IP Mobility and Gait Start: 01/07/19 12:48 Freq: NEEDED Status: Active Protocol: Document 01/09/19 09:30 AMB (Rec: 01/09/19 10:12 AMB [email or web address]) PT-Transfer Assessment Sit to and From Stand Sit to and from Stand Minimal Assistance 1 Person Assistance Use of Upper Extremities Equipment Transfer Assistive Device Gait Belt Front Wheeled Walker Orthotic/Prosthetic Devices or Brace: No Transfers Transfer Destination Chair Transfer Ability Level of Assist Contact Guard Assistance Use of Upper Extremities Comments Mobility Comments 1L O2, 94% at rest, 94-95 with walking. Gait Assessment Gait Gait Assistance Required: Contact Guard Assist 1 Person Assist Distance (Feet) 500 Assistive Devices Assistive Device Gait Belt Front Wheeled Walker Orthotic/Prosthetic Devices or Brace: No Gait Deviations General Gait Pattern Antalgic Decreased Stride Length Decreased Feet Clearance Comments Gait Comments Pt managed walker independently but slowly, foot drop more evident at end of walk M5 PT-IP Objective Assessments Start: 01/07/19 12:48 Freq: NEEDED Status: Active Protocol: Document 01/07/19 11:02 AB (Rec: 01/07/19 13:09 AB [id number]) Orientation Orientation/Cognition Level of Alertness Alert Orientation Name Place Situation Language Function Ability Hard of Hearing Safety Awareness Decreased Safety Awareness Memory Description Short Term Impaired Gross Range of Motion Lower Extremity ROM Assessment Within Functional Limits Strength Lower Extremity Strength Assessment Left Impaired Hip 3-/5 Knee 3-/5 Ankle 1/5 Sensation Assessment Sensation Gross Sensation WNL Muscle Tone Muscle Tone WNL Yes M6 PT-IP Treatment Start: 01/07/19 12:48 Freq: NEEDED Status: Active Protocol: Document 01/07/19 11:02 AB (Rec: 01/07/19 13:09 AB [id number]) Physical Therapy Treatment Education Education Provided Precautions Safety M7 PT-IP Assessment and Plan Start: 01/07/19 12:48 Freq: NEEDED Status: Active Protocol: Document 01/09/19 09:30 AMB (Rec: 01/09/19 10:12 AMB [email or web address]) PT Summary Assessment and Plan Summary Assessment Summary Pt had one instance of trying to move the walker where he had to stop and recover his balance but was able to do so without physical assistance. Recommendations To Nursing Amount of Assist Needed 1 Person Assist Discharge Recommendations PT Discharge Recommendations Home with Assistance Home Health SNF Rehab
--- NOTE | 2019-01-09 10:56 | CM.DPC ---
Addendum entered by Heidi Nava LPN 01/09/19 15:28: MADELEINE#2: presented to pt and Melvina (Cindy Vu). Melvina signed: 01/09 1500. Addendum entered by Heidi Nava LPN 01/09/19 15:24: reviewed JEY Weber's last note. See that Dr. Baldwin has ordered a chest xray. Addendum entered by Heidi Nava LPN 01/09/19 15:16: Met as planned with pt and his Melvina. Pt does agree with Melvina that a snf stay is likely needed before a return to home setting. SNF choice list: given and discussed. Decision: [facility] referral: [facility] and to /. Have provided an [facility] to pt and Melvina is encouraged to go over to the facility for a tour. Will be helpful to know ahead of time when surgeon is planning on a d/c as it will help pt and his in their decisons and plans. Pt today is noted to be coughing quite a bit during the conversation. He is mobilizing well with PT but overall seems very weak and admits to same. Melvina expresses concern re his overall condition. She has been coming to see him in evenings...says will try to be here in daytime so as to have better access to the physicians and the ancillary staff. Original Note: DCP; continued: EMR reviewed including the surgeon's note for this morning and then met with pt as planned. He was in process of talking with his Melvina on phone, spoke on speaker with her and arrangement made for a further discussion today at 1430 when she will be at the hospital. Melvina noted her continued concern re pt's weakness and his likelihood of benefiting from a short (one week + rehab/snf stay). This d/c telecommunications network planner very much agrees this would be helpful if pt is agreeable to same. She also expressed concerns re pt's overall intake and said she had been advised last evening that Ensure Clear would fit his clear liguid guidelines. She wished followup re this. Have now spoken with JEY White. She discussed same with Dr. Baldwin this morning and said he ok'd this as appropriate. He had already had some this morning and she is continuing to offer this to him today. P: further discussion of d/c dispo options: will get specifics in place with afternoon meeting. See also that pt has curtis catheter in place for urinary retention with plan to keep it in until at least the . This could be followed more closely at snf also as well as his overall rehab/recovery before home.
--- NOTE | 2019-01-09 11:34 | OT.IP.TRT ---
Current Diagnoses Partial intestinal obstruction, unspecified as to cause (01/04/19) Surgery Performed Operation Date: 01/06/19 16:00 Actual Procedures p laparotomy for lysis of adhesions for bowel obstruction - Joe Hernandez MD Occupational Therapy Treatment Note M2 OT-IP Current Condition Start: 01/08/19 16:45 Freq: Status: Active Protocol: Document 01/08/19 12:50 PJM (Rec: 01/08/19 17:02 PJM [id number]) Occupational Therapy Current Condition Current Condition Evaluation Date 01/08/19 Treatment Diagnosis decreased self care, mobility, activity tolerance s/p SBO w/ ex lap 01/06 Diagnosis Onset Date 01/04/18 Post Operative Precautions Abdominal Surgery Precautions Log Roll Lifting Restrictions Gait Belt above Incisional Area Other Precautions fall risk, abdominal incision M3 OT- IP Subjective and Pain Start: 01/08/19 16:45 Freq: Status: Active Protocol: Document 01/09/19 11:34 PJM (Rec: 01/09/19 16:41 PJM [id number]) OT- Subjective Occupational Therapy Visit Type Type Treatment Note Visit Start Time 11:10 Visit Stop Time 11:34 Total Visit Minutes 24 Notes Pt requesting to walk in halls . Occupational Therapy Visit Comments Patient Comments I feel better when I walk around. Patient/Caregiver Goals to get stronger so he can go home and see his dog OT Pain Assessment Pain When Pain Assessed After Treatment Pain Present Pain Present Denied Pain M4 OT- IP ADL's Start: 01/08/19 16:45 Freq: Status: Active Protocol: Document 01/09/19 11:34 PJM (Rec: 01/09/19 16:41 PJM [email or web address]) OT KVZ-Szag-Rilan[facility] General Evaluation Self-Feeding Ability Independent Comments OT Self-Feeding Comments pt needs encouragement to increase PO intake, but likes Ensure Clear OT ADL-Grooming Comments OT Grooming Comments pt declines any grooming tasks this session OT ADL-Dressing General Eval Lower Body Dressing Ability Total Assistance Areas Needing Assistance Socks Assistive Devices Dressing Assistive Devices Long Handled Shoe [place] Can Tender Sock Aid Comments OT Dressing Comments Pt unable to reach feet due to abdominal incision discomfort and decreased BLE flexibility . Demonstrated lower body dressing equipment which pt agreed to try tomorrow. OT ADL-Toileting General Evaluation Toileting Ability Total Assistance Areas Needing Assistance Empty Catheter or Colostomy Comments OT Toileting Comments curtis to stay in place until per chart notes OT ADL-Bathing Comments OT Bathing Comments pt has not yet been cleared by surgeon for shower M6 OT- IP Functional Cognition Start: 01/08/19 16:45 Freq: Status: Active Protocol: Document 01/09/19 11:34 PJM (Rec: 01/09/19 16:41 PJ [id number]) Cognitive Factors Limiting Selfcare Function Cognitive Ability Level of Alertness Alert Attention Span Ability Capable of Focused Attention Ability to Follow Commands Able to Follow One Step Commands Cognitive Comments Cognitive Assessment Comments Affect somewhat brighter today . Pt difficult to engage in self care tasks with some decreased insight re: current care needs noted. Pt able to find room without verbal cues after long walk. M7 OT- IP Mobility and Balance Start: 01/08/19 16:45 Freq: Status: Active Protocol: Document 01/09/19 11:34 PJM (Rec: 01/09/19 16:41 [facility] [id number]) OT-Transfer Assessment Sit to and From Stand Sit to and from Stand Contact Guard Assistance 1 Person Assistance Transfers Transfer Ability Standby Assistance 1 Person Assistance Technique Transfer Destination Chair Transfer Technique Stand Step Pivot Devices Transfer Assistive Devices Gait Belt Front Wheeled Walker Comments Mobility Comments pt tends to leave walker to side when turning to sit in chair, needs verbal cues for safe technique OT- Gait Assessment Gait Gait Assistance Required: Standby Assistance Contact Guard Assist Distance (Feet) 750 Assistive Devices Assistive Device Gait Belt Front Wheeled Walker Comments Gait Ability Comments assist with IV pole, slightly unsteady on truns but no actual loss of balance OT- Balance Assessment Sitting Balance and Reactions Static Sitting Balance Ability Good Standing Balance and Reactions Static Standing Balance Ability Good M9 OT- IP Assessment and Plan Start: 01/08/19 16:45 Freq: Status: Active Protocol: Document 01/09/19 11:34 PJM (Rec: 01/09/19 16:41 [facility] [id number]) OT Summary Assessment and Plan Potential Rehabilitation Potential Good Summary OT Impairments Strength Balance Functional Mobility Grooming Dressing Toileting Bathing Toilet Transfers Shower Transfers Progress Towards Goals Slow Progress due to Medical Issues Assessment Summary Pt still on clear liquid diet awaiting improved bowel function. Pt walking long distances but difficult to engage in other functional self care tasks such as grooming at sink or dressing training. Some decreased insight noted. Per correctional counselor/case manager, pt's is expressing concern about meeting pt's care needs at home for diet, wound care, and assist with dressing, bathing , toileting. She has had hip replacement and foot surgery per pt. Recommend short SNF stay for further rehab services prior to pt's return home with emphasis on simulating home self care skills including showering when MD permits. Goals Grooming Goal Independent Dressing Goal Standby Assistance Toileting Goal Independent Bathing Goal Standby Assistance Toilet Transfer Goal Independent Shower Transfer Goal Standby Assistance Patient/Caregiver Education Goal Demonstrate Post-Op Precautions Demonstrate Energy Conservation and Pacing Caregiver Independent Assisting Patient OT-Other Goals Grooming to be done standing at sink with no loss of balance. Days to Meet Goals 5 Frequency of Treatment Frequency Of Treatment Once a Day Treatment Plan OT Treatment Plan ADL Training Functional Mobility Patient/Family Education Discharge Planning Discharge Recommendations OT Discharge Recommendations SNF Rehab Home Equipment Needs shower seat, lower body dressing equipt
[2019-01-09] MEDS: BISACODYL 10 MG SUPP PR ×2 (12:51→20:54)
--- NOTE | 2019-01-09 13:37 | DI.RAD.S_ITS ---
PROCEDURE: XR CHEST 1V INDICATIONS: respiratory distress, new crackles to bases, audible wheeze TECHNIQUE: One view of the chest was acquired. COMPARISON: [facility], CR, XR CHEST 1V, 01/06/2019, 13:40. FINDINGS: Surgical changes and devices: None. Lungs and pleura: Linear bilateral atelectasis. No airspace consolidation. No pleural effusions or pneumothorax. Mediastinum: Mediastinal contours appear normal. Heart size is normal. Bones and chest wall: No suspicious bony lesions. Overlying soft tissues appear unremarkable. IMPRESSION: Linear bilateral atelectasis. Dictated by: Christopher Liriano M.D. on 01/09/2019 at 15:10 Approved by: Christopher Liriano M.D. on 01/09/2019 at 15:11
--- NOTE | 2019-01-09 13:40 | PC.NURSE ---
Addendum entered by Tia Rodgers R.N. 01/09/19 15:05: Bried update given to Dr. Guido at 1505 via phone. Addendum entered by Tia Rodgers R.N. 01/09/19 14:43: Pt OOB to BS around 1405, had large soft/mushy brown BM. Assisted back to bed, stated feeling better. CXR delayed due to pt needing to have BM. Pt's arrived to room at 1425 and updated with below information. Original Note: Day Shift- Pt A&OX4, flat affect, cooperative. High fall risk precautions in place, bed/chair alarm on. AE diminished with coarseness with slight crackle to bases, clear AE to upper lung [place]mosillo. Encouraged incentive spirometer. Pt has very short breaths reaching less than or equal to 250. Pt has intermittent moist cough with yellow sputum production. Most times sputum does not fully come out of mouth and pt swallows. At 1230, pt helped back to bed for scheduled suppository from this AM, pt wanted when he got back to bed. Given at 1250. Pt c/o increased bloating and belching, very little flatus, 1 fluff after supp. Pt stated he couldn't breath, On RA, O2 checked for 61%, deep breathing through nose encouraged, pt tends to mouth breath. O2 2L NC placed at, see vital sigh flowsheet. Pt repositioned. Had pt perform incentive spirometer, able to get to below 250. Lung bases now have more crackles with an audible wheeze upon expiration. O2 increased to 88-90% on 2L. RT paged at 1305 to assess, recommends acapella and chest xray. Left message with Dr. Gibbons's office at 1324 for an update on pt condition. Dr. Baldwin arrive on unit at 1330, new orders rec'd for Portable CXR and Lasix 40mg IV X1, decreased current IVF to 21ml/hr.
[2019-01-09] MEDS: FUROSEMIDE 40 MG/4 ML VIAL IV (14:12)
[2019-01-09] MEDS: MAGNESIUM SULFATE 2 GM/50 ML PIGGYBACK IV (14:12)
[2019-01-09] MEDS: POTASSIUM CHLORIDE 20 MEQ/15 ML UDC PO (14:12)
[2019-01-09] MEDS: ALBUTEROL/IPRATROPIUM 3 ML AMPUL INH (18:00)
[2019-01-09] MEDS: ACETAMINOPHEN 325 MG TABLET 650 MG PO (18:33)
[2019-01-10] VITALS (11 sets, daily range): BP systolic 101–129; BP diastolic 66–76; PULSE 55–114; RESP 16–24; TEMP 36.6–37; O2SAT 88–97
[2019-01-10] MEDS: ACETAMINOPHEN 325 MG TABLET 650 MG PO ×4 (00:06→21:09)
[2019-01-10] MEDS: ALBUTEROL/IPRATROPIUM 3 ML AMPUL INH ×2 (07:08→14:01)
[2019-01-10] MEDS: DEXTROSE 5%-0.45NS W/KCL 20MEQ 1,000 ML 21 MEQ IV (07:35)
[2019-01-10] MEDS: PANTOPRAZOLE 40 MG VIAL IV (09:02)
[2019-01-10] MEDS: SIMETHICONE 80 MG TABLET PO ×2 (09:02→13:15)
[2019-01-10] MEDS: ENOXAPARIN 40 MG/0.4 ML SYRINGE SUBCUT (09:02)
[2019-01-10] MEDS: GABAPENTIN 300 MG CAPSULE PO (09:02)
[2019-01-10] MEDS: TAMSULOSIN 0.4 MG CAPSULE 0.8 MG PO (09:03)
--- NOTE | 2019-01-10 09:03 | OT.IP.TRT ---
Current Diagnoses Partial intestinal obstruction, unspecified as to cause (01/04/19) Surgery Performed Operation Date: 01/06/19 16:00 Actual Procedures p laparotomy for lysis of adhesions for bowel obstruction - Joe Hernandez MD Occupational Therapy Treatment Note M2 OT-IP Current Condition Start: 01/08/19 16:45 Freq: Status: Active Protocol: Document 01/08/19 12:50 PJM (Rec: 01/08/19 17:02 PJM [id number]) Occupational Therapy Current Condition Current Condition Evaluation Date 01/08/19 Treatment Diagnosis decreased self care, mobility, activity tolerance s/p SBO w/ ex lap 01/06 Diagnosis Onset Date 01/04/18 Post Operative Precautions Abdominal Surgery Precautions Log Roll Lifting Restrictions Gait Belt above Incisional Area Other Precautions fall risk, abdominal incision M3 OT- IP Subjective and Pain Start: 01/08/19 16:45 Freq: Status: Active Protocol: Document 01/10/19 09:00 CCC (Rec: 01/10/19 09:03 CCC [email or web address]) OT- Subjective Occupational Therapy Visit Type Type Patient Refusal Notes Pt states too tired and not wanting to do any grooming at this time. Was able to recall use of lower body adaptive equipment practice yesterday and agreed may need use of shower chair and to get from the [employer].
[2019-01-10] MEDS: BISACODYL 10 MG SUPP PR ×2 (11:42→21:06)
--- NOTE | 2019-01-10 11:44 | PT.IPTN ---
Current Diagnoses Partial intestinal obstruction, unspecified as to cause (01/04/19) Surgery Performed Operation Date: 01/06/19 16:00 Actual Procedures p laparotomy for lysis of adhesions for bowel obstruction - Joe Hernandez MD Physical Therapy Treatment Note M2 PT-IP Current Condition Start: 01/07/19 12:48 Freq: NEEDED Status: Active Protocol: Document 01/07/19 11:02 AB (Rec: 01/07/19 13:09 AB [id number]) Physical Therapy Current Condition Current Condition Evaluation Date 01/07/19 Treatment Diagnosis SBO s/p ex-lap; difficulty in walking Onset Date 01/04/19 Precautions Abdominal Surgery Precautions Log Roll Lifting Restrictions Gait Belt above Incisional Area M3 PT-IP Subjective Start: 01/07/19 12:48 Freq: NEEDED Status: Active Protocol: Document 01/10/19 11:28 GGD (Rec: 01/10/19 11:44 GGD [id number]) Subjective Physical Therapy Visit Type Type Treatment Note Visit Start Time 11:00 Visit Stop Time 11:25 Total Visit Minutes 25 Number of MEDICAL LIAISON Visits 1 Physical Therapy Visit Comments Patient Comments Pt would like walk Therapy Pain Assessment Pain When Pain Assessed During Mobility Pain Present Pain Present Pain Reported M4 PT-IP Mobility and Gait Start: 01/07/19 12:48 Freq: NEEDED Status: Active Protocol: Document 01/10/19 11:28 GGD (Rec: 01/10/19 11:44 GGD [id number]) PT-Bed Mobility Assessment Sit to Supine Sit to Supine Contact Guard Assistance 1 Person Assistance PT-Transfer Assessment Sit to and From Stand Sit to and from Stand Contact Guard Assistance Use of Upper Extremities Equipment Transfer Assistive Device Gait Belt Front Wheeled Walker Orthotic/Prosthetic Devices or Brace: No Transfers Transfer Destination Bed Transfer Ability Level of Assist Contact Guard Assistance Use of Upper Extremities Comments Mobility Comments O2 on RA [phone] with activity. Gait Assessment Gait Gait Assistance Required: Contact Guard Assist 1 Person Assist Distance (Feet) 550 Assistive Devices Assistive Device Gait Belt Front Wheeled Walker Orthotic/Prosthetic Devices or Brace: No Gait Deviations General Gait Pattern Antalgic Decreased Stride Length Decreased Feet Clearance Stair Climbing Assessment Evaluation Level of Assist On Stairs Contact Guard Assistance Devices Stair Climbing Assistive Devices Left Railing Right Railing Technique/Endurance Stair Climbing Direction Ascend and Descend Stair Climbing Technique Step Over Step Number of Steps Climbed 3 Stair Climbing Set # Repetitions (reps) 1 M5 PT-IP Objective Assessments Start: 01/07/19 12:48 Freq: NEEDED Status: Active Protocol: Document 01/07/19 11:02 AB (Rec: 01/07/19 13:09 AB [id number]) Orientation Orientation/Cognition Level of Alertness Alert Orientation Name Place Situation Language Function Ability Hard of Hearing Safety Awareness Decreased Safety Awareness Memory Description Short Term Impaired Gross Range of Motion Lower Extremity ROM Assessment Within Functional Limits Strength Lower Extremity Strength Assessment Left Impaired Hip 3-/5 Knee 3-/5 Ankle 1/5 Sensation Assessment Sensation Gross Sensation WNL Muscle Tone Muscle Tone WNL Yes M6 PT-IP Treatment Start: 01/07/19 12:48 Freq: NEEDED Status: Active Protocol: Document 01/07/19 11:02 AB (Rec: 01/07/19 13:09 AB [id number]) Physical Therapy Treatment Education Education Provided Precautions Safety M7 PT-IP Assessment and Plan Start: 01/07/19 12:48 Freq: NEEDED Status: Active Protocol: Document 01/10/19 11:28 GGD (Rec: 01/10/19 11:44 GGD [id number]) PT Summary Assessment and Plan Summary Assessment Summary Pt improving with mobility and was safe with stairs. He still needs FWW for stability with gait. Frequency of Treatment Frequency Of Treatment Once a Day Treatment Plan Physical Therapy Treatment Plan Bed Mobility Training Transfer Training Gait Training Therapeutic Exercise Balance Retraining Post Op Education Discharge Planning Hot or Cold Pack Neuromuscular Re-ed Coordination Retraining Manual Therapy Recommendations To Nursing Amount of Assist Needed 1 Person Assist Discharge Recommendations PT Discharge Recommendations Home with Assistance Home Health SNF Rehab
--- NOTE | 2019-01-10 12:16 | PM.PN.1 ---
Subjective Date Patient Seen: 01/10/19 Time Patient Seen: 12:16 Interval history: Patient is now 4 days post exploratory laparotomy enterolysis for a mechanical small bowel obstruction. He is feeling better now he is having bowel movements passing flatus. He is tolerating a clear liquid diet. He would like to try solid food. He is ambulating. Exam Vital Signs (past 8 hours): - 01/10/19 05:50 01/10/19 07:00 01/10/19 07:15 Temperature 98 F Pulse Rate 66 Respiratory Rate 16 Blood Pressure 123/75 Pulse Oximetry 93 95 88 L 01/10/19 07:16 01/10/19 07:45 01/10/19 11:00 Temperature 98.2 F 98.1 F Pulse Rate 55 L 62 79 Respiratory Rate 16 18 18 Blood Pressure 129/76 101/66 Pulse Oximetry 93 93 Fraction of Inspired Oxygen 24 Oxygen Delivery Method Room Air Oxygen Flow Rate 1 Narrative Exam Narrative: Patient is alert and oriented afebrile. Abdomen is soft nontender he has no abdominal pain. Incision is healing well although it is surrounded by some ecchymosis but no signs of infection. Objective Labs Result Diagrams: 01/08/19 05:35 01/09/19 09:15 Assessment & Plan Assessment & Plan narrative: Patient is postop day 4 following enterolysis for obstruction. He is tolerating a liquid diet well. I will advance him to a soft diet. Also remove his urinary catheter. I have started him on Hytrin. If the patient tolerates a solid diet he should be able to be discharged tomorrow.
--- NOTE | 2019-01-10 17:08 | OT.IP.TRT ---
Current Diagnoses Partial intestinal obstruction, unspecified as to cause (01/04/19) Surgery Performed Operation Date: 01/06/19 16:00 Actual Procedures p laparotomy for lysis of adhesions for bowel obstruction - Joe Hernandez MD Occupational Therapy Treatment Note M2 OT-IP Current Condition Start: 01/08/19 16:45 Freq: Status: Active Protocol: Document 01/08/19 12:50 PJM (Rec: 01/08/19 17:02 PJM [id number]) Occupational Therapy Current Condition Current Condition Evaluation Date 01/08/19 Treatment Diagnosis decreased self care, mobility, activity tolerance s/p SBO w/ ex lap 01/06 Diagnosis Onset Date 01/04/18 Post Operative Precautions Abdominal Surgery Precautions Log Roll Lifting Restrictions Gait Belt above Incisional Area Other Precautions fall risk, abdominal incision M3 OT- IP Subjective and Pain Start: 01/08/19 16:45 Freq: Status: Active Protocol: Document 01/10/19 16:52 [facility] (Rec: 01/10/19 17:07 [facility] [id number]) OT- Subjective Occupational Therapy Visit Type Type Treatment Note Visit Start Time 15:55 Visit Stop Time 16:35 Total Visit Minutes 40 Occupational Therapy Visit Comments Patient Comments Pt willing to wash up while sitting in the recliner. Patient/Caregiver Goals Pt wanting to go home. OT Pain Assessment Pain When Pain Assessed At Rest Pain Present Pain Present Denied Pain M4 OT- IP ADL's Start: 01/08/19 16:45 Freq: Status: Active Protocol: Document 01/10/19 16:52 [facility] (Rec: 01/10/19 17:07 [facility] [id number]) OT ADL-Grooming General Evaluation Areas Needing Assistance Retrieving/Set-up of Grooming Items Comments OT Grooming Comments Pt has tremors in his hands and needing set-up for grooming but otherwise able to do while sitting from the recliner. OT ADL-Oral Care General Eval Oral Care Ability Independent OT ADL-Bathing Bathing Type Bathing Type Sponge Bath General Evaluation Bathing Ability Minimal Assistance Areas Needing Assistance Retrieving/Setting Up Items Comments OT Bathing Comments While sitting from the recliner pt able to do upper body and face and needing assist for his back. Pt not wanting to wash his legs or perineal areas today. Pt encouraged to try showering with OT tomorrow to see how he does for endurance and independence. M5 OT- IP IADL's Start: 01/08/19 16:45 Freq: Status: Active Protocol: Document 01/08/19 12:50 PJM (Rec: 01/08/19 17:02 PJM [email or web address]) OT-Instrumental Activities of Daily Living Deficits IADL Deficits Identified Deficits Home Safety Awareness Awareness of Need for Assistance at Home Good Awareness Medication Management Medication Management No Deficits Identified Money Management Money Management No Deficits Identified Meal Preparation Meal Preparation Caregiver Provides Assist Meal Preparation Comments to assist until pt able Asset Management Coordinator Asset Management Coordinator Caregiver Provides Assist Asset Management Coordinator Comments to assist until pt able Driving Driving Caregiver Provides Assist Driving Comments to assist until pt able M6 OT- IP Functional Cognition Start: 01/08/19 16:45 Freq: Status: Active Protocol: Document 01/10/19 16:52 [facility] (Rec: 01/10/19 17:07 [facility] [id number]) Cognitive Factors Limiting Selfcare Function Cognitive Ability Level of Alertness Alert Attention Span Ability Capable of Focused Attention Ability to Follow Commands Able to Follow One Step Commands Memory Description No Deficits Noted Safety Awareness Underestimates Need for Assistance Cognitive Comments Cognitive Assessment Comments Pt after education and agreed that it would be important for him to work on ADl needs in addition to just walking in order to get stronger and see if he is capable of being able to care for himself at home in addition to assist from . M7 OT- IP Mobility and Balance Start: 01/08/19 16:45 Freq: Status: Active Protocol: Document 01/10/19 16:52 [facility] (Rec: 01/10/19 17:07 [facility] [email or web address]) OT- Bed Mobility Assessment Rolling Type of Rolling Roll to Right Level of Assistance Independent Supine to Sit Supine to Sit Assist Standby Assistance Sit to Supine Sit to Supine Assist Standby Assistance Scooting Scooting to Edge of Bed Standby Assistance Scooting Up and Down in Bed Standby Assistance OT-Transfer Assessment Sit to and From Stand Sit to and from Stand Standby Assistance Transfers Transfer Ability Standby Assistance 1 Person Assistance Technique Transfer Destination Bed Chair Devices Transfer Assistive Devices Gait Belt Front Wheeled Walker Comments Mobility Comments Occasional vc to keep fww close to him prior to sitting. Attempted to transfer without use of FWW, pt a bit unsteady and tends to place hands on the recliner and then turn to sit. Pt agreed that it would be best to continue with use of FWW. OT- Gait Assessment Gait Gait Assistance Required: Standby Assistance Contact Guard Assist Distance (Feet) 850 Assistive Devices Assistive Device Gait Belt Front Wheeled Walker Comments Gait Ability Comments Initially needing CGA and then SBA with FWW. OT- Balance Assessment Sitting Balance and Reactions Static Sitting Balance Ability Normal Dynamic Sitting Balance Ability Good Standing Balance and Reactions Static Standing Balance Ability Good Dynamic Standing Balance Ability Fair M8 OT- IP Objective Assessments Start: 01/08/19 16:45 Freq: Status: Active Protocol: Document 01/08/19 12:50 PJM (Rec: 01/08/19 17:02 PJM [id number]) OT Gross Range of Motion Upper Extremity Range of Motion Assessment Within Functional Limits OT Strength Upper Extremity Strength Assessment Within Functional Limits Hand Power Press Supervisor Strength Hand Dominance Right OT- Coordination Assessment Comments Coordination Comments pt has B essential tremor OT-Muscle Tone Assessment Muscle Tone WNL Yes OT Sensation Assessment Comments Summary Comments BUE WNL per pt Edema Edema Absent M9 OT- IP Assessment and Plan Start: 01/08/19 16:45 Freq: Status: Active Protocol: Document 01/10/19 16:52 CCC (Rec: 01/10/19 17:07 CCC [id number]) OT Summary Assessment and Plan Potential Rehabilitation Potential Good Summary OT Impairments Strength Balance Functional Mobility Grooming Dressing Toileting Bathing Toilet Transfers Shower Transfers Progress Towards Goals Progressing Toward Goals Assessment Summary Pt motivated to get stronger and go home. Pt after education has better insight to engage in ADl's as well as ambulation to get stronger. Pending caregiver training and 's ability to care for pt recommend short skilled rehab versus home with assist. Goals Grooming Goal Independent Dressing Goal Standby Assistance Toileting Goal Independent Bathing Goal Standby Assistance Toilet Transfer Goal Independent Shower Transfer Goal Standby Assistance Patient/Caregiver Education Goal Demonstrate Post-Op Precautions Demonstrate Energy Conservation and Pacing Caregiver Independent Assisting Patient OT-Other Goals Shower Days to Meet Goals 4 Frequency of Treatment Frequency Of Treatment Once a Day Treatment Plan OT Treatment Plan ADL Training Functional Mobility Patient/Family Education Discharge Planning Discharge Recommendations OT Discharge Recommendations Home with Assistance SNF Rehab Home Equipment Needs shower seat, lower body dressing equipt
[2019-01-11 00:10] VITALS: BP 133/78; PULSE 74; RESP 14; TEMP 37.3; O2SAT 90
[2019-01-11] MEDS: ACETAMINOPHEN 325 MG TABLET 650 MG PO ×2 (00:16→05:53)
[2019-01-11 03:00] VITALS: BP 115/64; PULSE 65; RESP 20; TEMP 36.8; O2SAT 91
[2019-01-11 07:44] VITALS: O2SAT 93
[2019-01-11 07:45] VITALS: BP 125/81; PULSE 60; RESP 20; TEMP 36.6; O2SAT 91
[2019-01-11] MEDS: ENOXAPARIN 40 MG/0.4 ML SYRINGE SUBCUT (09:47)
[2019-01-11] MEDS: PANTOPRAZOLE 40 MG VIAL IV (09:48)
[2019-01-11] MEDS: SODIUM CHLORIDE 0.9% FLUSH 10 ML IV (09:48)
[2019-01-11 10:22] VITALS: O2SAT 93
--- NOTE | 2019-01-11 10:25 | PT.IPTN ---
Current Diagnoses Partial intestinal obstruction, unspecified as to cause (01/04/19) Surgery Performed Operation Date: 01/06/19 16:00 Actual Procedures p laparotomy for lysis of adhesions for bowel obstruction - Joe Hernandez MD Physical Therapy Treatment Note M2 PT-IP Current Condition Start: 01/07/19 12:48 Freq: NEEDED Status: Active Protocol: Document 01/07/19 11:02 AB (Rec: 01/07/19 13:09 AB [id number]) Physical Therapy Current Condition Current Condition Evaluation Date 01/07/19 Treatment Diagnosis SBO s/p ex-lap; difficulty in walking Onset Date 01/04/19 Precautions Abdominal Surgery Precautions Log Roll Lifting Restrictions Gait Belt above Incisional Area M3 PT-IP Subjective Start: 01/07/19 12:48 Freq: NEEDED Status: Active Protocol: Document 01/11/19 10:25 GGD (Rec: 01/11/19 11:58 GGD [id number]) Subjective Physical Therapy Visit Type Type Treatment Note Visit Start Time 10:00 Visit Stop Time 10:26 Total Visit Minutes 26 Number of DISABILITY CASE MANAGER Visits 2 Physical Therapy Visit Comments Patient Comments Pt states he is tired. Therapy Pain Assessment Pain When Pain Assessed During Mobility Pain Present Pain Present Pain Reported M4 PT-IP Mobility and Gait Start: 01/07/19 12:48 Freq: NEEDED Status: Active Protocol: Document 01/11/19 10:25 GGD (Rec: 01/11/19 11:58 GGD [id number]) PT-Bed Mobility Assessment Sit to Supine Sit to Supine Contact Guard Assistance 1 Person Assistance Scooting Scooting to Edge of Bed Standby Assistance PT-Transfer Assessment Sit to and From Stand Sit to and from Stand Contact Guard Assistance Use of Upper Extremities Equipment Transfer Assistive Device Gait Belt Front Wheeled Walker Orthotic/Prosthetic Devices or Brace: No Transfers Transfer Destination Bed Transfer Ability Level of Assist Contact Guard Assistance Use of Upper Extremities Gait Assessment Gait Gait Assistance Required: Contact Guard Assist 1 Person Assist Distance (Feet) 1,000 Assistive Devices Assistive Device Gait Belt Front Wheeled Walker Orthotic/Prosthetic Devices or Brace: No Gait Deviations General Gait Pattern Antalgic Decreased Stride Length Decreased Feet Clearance Comments Gait Comments Pt needed cues for keeping FWW close. M5 PT-IP Objective Assessments Start: 01/07/19 12:48 Freq: NEEDED Status: Active Protocol: Document 01/07/19 11:02 AB (Rec: 01/07/19 13:09 AB [id number]) Orientation Orientation/Cognition Level of Alertness Alert Orientation Name Place Situation Language Function Ability Hard of Hearing Safety Awareness Decreased Safety Awareness Memory Description Short Term Impaired Gross Range of Motion Lower Extremity ROM Assessment Within Functional Limits Strength Lower Extremity Strength Assessment Left Impaired Hip 3-/5 Knee 3-/5 Ankle 1/5 Sensation Assessment Sensation Gross Sensation WNL Muscle Tone Muscle Tone WNL Yes M6 PT-IP Treatment Start: 01/07/19 12:48 Freq: NEEDED Status: Active Protocol: Document 01/07/19 11:02 AB (Rec: 01/07/19 13:09 AB [id number]) Physical Therapy Treatment Education Education Provided Precautions Safety M7 PT-IP Assessment and Plan Start: 01/07/19 12:48 Freq: NEEDED Status: Active Protocol: Document 01/11/19 10:25 GGD (Rec: 01/11/19 11:58 GGD [id number]) PT Summary Assessment and Plan Summary Assessment Summary Pt able to progress gait distance with mild fatigue. He had decrease use of UE support on FWW. Frequency of Treatment Frequency Of Treatment Once a Day Recommendations To Nursing Amount of Assist Needed 1 Person Assist Discharge Recommendations PT Discharge Recommendations Home with Assistance Home Health SNF Rehab
--- NOTE | 2019-01-11 11:27 | PC.NURSE ---
Addendum entered by Adrianna Arteaga R.N. 01/11/19 15:37: Transfer to SNF: IV dc'd intact. All personal belongings collected and sent with patient at discharge. Transfer packet given to [facility] staff. Assisted into wheelchair and taken out by [facility] staff. Report called to Sarah Beth at [facility]. Original Note: Shift summary: Alert and oriented X3, affect a bit flat. Tolerating mechanical soft diet without issue. Denies need for analgesia. Reports abdominal discomfort which he states he would not describe as pain. 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 Patient has had multiple watery BM's (at least 3) since 0700 this morning, scheduled suppository was held. Reports frequency with voiding, denies s/sx retention. Lungs CTA, diminished. Intermittent cough which he reports started days ago. HRR. Tremors noted, especially in BUE's (consistent with Hx of essential tremor). Able to make needs known and calls appropriately. Light and belongings within reach, bed alarm on.
[2019-01-11 11:40] VITALS: BP 129/86; PULSE 70; RESP 12; TEMP 36.6; O2SAT 95
--- NOTE | 2019-01-11 12:12 | CM.DPC ---
Addendum entered by Saskia Garza R.N. 01/11/19 14:24: Spoke to Dr. Collier, surgeon working today, and let him know plan, that patient is to go to [facility] today. Orders written, medication list signed. PASSR completed. Updated , Cindy, she is aware that patient is going to [facility] today, at approximately 1500. Called Gurwinder, and confirmed picking supervisor time of 1500. PASSR, signed med list, and discharge summary faxed to [facility]. Patient signed updated IMM, confirmed with , Cindy, that patient could sign. Patient is aware of plan. He stated, he was happy with the staff here, would give them a 15 out of 10. Original Note: DCP Cont: Checked in with patient, he was sitting up in his chair. Alert and oriented. Stated, he didn't sleep much last night because of the various noises, the air pump, as well as people coming in at different times. He was up eating some of his breakfast. Surgeon has not yet been in. Discussed discharge planning with patient. He is aware of going to [facility], and is hoping that he can sleep better there. Called Gurwinder in admissions at [facility] to confirm that they can accept patient today, which he stated that they could accept. Let Adrianna, patient's nurse know, in case surgeon comes in. According to note from yesterday, if patient tolerates solid food, may be discharged. Went ahead and completed PASSR. P: DCP to continue to follow. Will update surgeon when he comes in, that discharge is for [facility] instead of home. Saskia Garza RN/Kindergartner
--- NOTE | 2019-01-11 13:14 | P.DS_ITS ---
History of Present Illness Date Patient Seen: 01/11/19 Time Patient Seen: 13:13 Chief complaint: severe stomach pains Narrative: Patient is a gentleman admitted with abdominal distension, decreased bowel function, abdominal pain and a CT suggesting small bowel obstruction. Discharge Providers Date of admission: 01/04/19 13:30 Discharge Date: 01/11/19 Primary care physician: Praveen Weaver MD Consults: 01/06/19 15:51 Consult to Respiratory Therapy Evaluate & Treat Comment: Physician Instructions: Evaluate and treat 01/07/19 06:08 Consult to Physical Therapy Evaluate & Treat Comment: Physician Instructions: Evaluate and Treat 01/07/19 23:31 Consult to Physical Therapy Evaluate & Treat Comment: post op Physician Instructions: Evaluate and Treat 01/08/19 10:24 Consult to Occupational Therapy Evaluate & Treat Comment: Physician Instructions: Evaluate and treat 01/09/19 13:08 Consult to Respiratory Therapy Evaluate & Treat Comment: Physician Instructions: Evaluate and treat 01/09/19 13:45 Consult to Respiratory Therapy Evaluate & Treat Comment: mobilize secreations Physician Instructions: Evaluate and treat Discharge provider: Heri Lee MD Summary Discharge Diagnosis: Adhesive small bowel obstruction. Inguinal hernia not incarcerated or strangulated.. Hospital Course: Patient was admitted and observed. He had initial improvement in his x-ray appearance and bowel function and then deteriorated once again wanted diet was begun. He ultimately came to laparotomy oriented when the lysis of a single band. His postoperative course since then has been smooth. His diet was very gradually advanced. Araujo was removed. He was tolerating a general diet at the time of discharge. Status at Discharge Cognitive/behavioral status at discharge: oriented Functional status at discharge: uses cane/walker Overall status at discharge: patient is progressing back to baseline Exam Vital Signs (past 8 hours): - 01/11/19 07:44 01/11/19 07:45 01/11/19 10:22 Temperature 97.8 F Pulse Rate 60 Respiratory Rate 20 Blood Pressure 125/81 Pulse Oximetry 93 91 93 01/11/19 11:40 Temperature 98 F Pulse Rate 70 Respiratory Rate 12 Blood Pressure 129/86 Pulse Oximetry 95 Fraction of Inspired Oxygen 24 Oxygen Delivery Method Room Air Oxygen Flow Rate 0 Narrative Exam Narrative: Operative no apparent distress. Lungs excellent effort. Lungs clear. Heart regular rate and rhythm without murmur gallop. Abdomen is slightly distended in the upper abdomen. The remainder is flat and soft. Midline is intact. There is some fairly extensive bruising about the incision. No cellulitis. Objective Labs Result Diagrams: 01/08/19 05:35 01/09/19 09:15 Discharge Plan Discharge Plan Discharge Problem: Small bowel obstruction Patient Disposition: SNF Transfer to: [facility] Transportation: Wheelchair Discharge comment: Please call with room location when he arrives. He will need a follow-up in our office in about 7-10 days for suture removal and evaluation of his wound. I certify the [facility] care is medically necessary on a continuing basis for any conditions for which he/ she received care during this hospitalization.: Yes The receiving facility has agreed to accept transfer and provide medical treatment.: Yes Discharge Med Rec/Prescriptions Prescriptions: New gabapentin 300 mg capsule 300 mg PO BID Qty: 30 RF: 0 Continued terazosin 10 mg capsule 10 mg PO BEDTIME RF: 0 Follow up/Referrals: Praveen Weaver MD [Primary Care Provider] - Parker Baldwin MD [Physician] - 1 Week (Please call our office and make a appointment to see Dr. Baldwin in 7-10 days for suture removal) Discharge Health Status Brief summary of current health status: Patient is post op from an exploration for an adhesive small bowel obstruction. He is tolerating regular food. He is ambulating with assistance/a walker. He does have an intention tremor. He is not under treatment for it however. Multidrug resistant organism: No MDRO MDRO Verified by culture: No Precautions: [place] Provider Discharge Instructions Diet: Diet as Tolerated Liquid consistency: Normal/Thin Food texture: Regular Activity: Avoid lifting over 10 lb or straining if possible. May participate in rehab however. Goal is for him to be strength in so that he can return home and be fairly independent. Skin/Wound/Dressing Care Report to your healthcare provider any signs of infection, such as:: increased pain, unusual drainage and unusual redness Special Rehabilitation Services Rehab type: Physical therapy and Occupational therapy Restrictions to mobility: Using a walker at this time Discharge Data Primary Care Provider: Praveen Weaver Attending Provider: Joe Hernandez Admit Date/Time: 01/04/19 13:30
--- NOTE | 2019-01-11 16:12 | OT.IP.TRT ---
Current Diagnoses Partial intestinal obstruction, unspecified as to cause (01/04/19) Surgery Performed Operation Date: 01/06/19 16:00 Actual Procedures p laparotomy for lysis of adhesions for bowel obstruction - Joe Hernandez MD Occupational Therapy Treatment Note M2 OT-IP Current Condition Start: 01/08/19 16:45 Freq: Status: Active Protocol: Document 01/08/19 12:50 PJM (Rec: 01/08/19 17:02 PJM [id number]) Occupational Therapy Current Condition Current Condition Evaluation Date 01/08/19 Treatment Diagnosis decreased self care, mobility, activity tolerance s/p SBO w/ ex lap 01/06 Diagnosis Onset Date 01/04/18 Post Operative Precautions Abdominal Surgery Precautions Log Roll Lifting Restrictions Gait Belt above Incisional Area Other Precautions fall risk, abdominal incision M3 OT- IP Subjective and Pain Start: 01/08/19 16:45 Freq: Status: Active Protocol: Document 01/11/19 16:07 CGR (Rec: 01/11/19 16:12 CGR [id number]) OT- Subjective Occupational Therapy Visit Type Type Progress Note Visit Start Time 12:17 Visit Stop Time 12:52 Total Visit Minutes 35 OT Pain Assessment Pain When Pain Assessed At Rest Pain Present Pain Present Denied Pain M4 OT- IP ADL's Start: 01/08/19 16:45 Freq: Status: Active Protocol: Document 01/11/19 16:07 CGR (Rec: 01/11/19 16:12 CGR [id number]) OT [id number] General Evaluation Self-Feeding Ability Independent Comments OT Self-Feeding Comments Pt stating that his lunch was not appetizing. Pt educated on importance of eating after a surgery like his. Pt agreeable to ensure. Discussed options for increased oral intake including food from home and shakes. OT ADL-Dressing General Eval Lower Body Dressing Ability Independent Areas Needing Assistance Socks Comments OT Dressing Comments Pt demonstrated ability to doff and don socks to both feet. OT ADL-Bathing Comments OT Bathing Comments Pt agreeable to shower but requesting to perform later. Discussed with aide and aide to assist with shower later in day. M5 OT- IP IADL's Start: 01/08/19 16:45 Freq: Status: Active Protocol: Document 01/08/19 12:50 PJM (Rec: 01/08/19 17:02 PJM [id number]) OT-Instrumental Activities of Daily Living Deficits IADL Deficits Identified Deficits Home Safety Awareness Awareness of Need for Assistance at Home Good Awareness Medication Management Medication Management No Deficits Identified Money Management Money Management No Deficits Identified Meal Preparation Meal Preparation Caregiver Provides Assist Meal Preparation Comments to assist until pt able Ssis Ssrs Developer Ssis Ssrs Developer Caregiver Provides Assist Ssis Ssrs Developer Comments to assist until pt able Driving Driving Caregiver Provides Assist Driving Comments to assist until pt able M6 OT- IP Functional Cognition Start: 01/08/19 16:45 Freq: Status: Active Protocol: Document 01/10/19 16:52 [facility] (Rec: 01/10/19 17:07 [facility] [id number]) Cognitive Factors Limiting Selfcare Function Cognitive Ability Level of Alertness Alert Attention Span Ability Capable of Focused Attention Ability to Follow Commands Able to Follow One Step Commands Memory Description No Deficits Noted Safety Awareness Underestimates Need for Assistance Cognitive Comments Cognitive Assessment Comments Pt after education and agreed that it would be important for him to work on ADl needs in addition to just walking in order to get stronger and see if he he is capable of being able to care for himself at home in addition to assist from . M7 OT- IP Mobility and Balance Start: 01/08/19 16:45 Freq: Status: Active Protocol: Document 01/10/19 16:52 [facility] (Rec: 01/10/19 17:07 [facility] [id number]) OT- Bed Mobility Assessment Rolling Type of Rolling Roll to Right Level of Assistance Independent Supine to Sit Supine to Sit Assist Standby Assistance Sit to Supine Sit to Supine Assist Standby Assistance Scooting Scooting to Edge of Bed Standby Assistance Scooting Up and Down in Bed Standby Assistance OT-Transfer Assessment Sit to and From Stand Sit to and from Stand Standby Assistance Transfers Transfer Ability Standby Assistance 1 Person Assistance Technique Transfer Destination Bed Chair Devices Transfer Assistive Devices Gait Belt Front Wheeled Walker Comments Mobility Comments Occasional vc to keep fww close to him prior to sitting. Attempted to transfer without use of FWW, pt a bit unsteady and tends to place hands on the recliner and then turn to sit. Pt agreed that it would be best to continue with use of FWW. OT- Gait Assessment Gait Gait Assistance Required: Standby Assistance Contact Guard Assist Distance (Feet) 850 Assistive Devices Assistive Device Gait Belt Front Wheeled Walker Comments Gait Ability Comments Initially needing CGA and then SBA with FWW. OT- Balance Assessment Sitting Balance and Reactions Static Sitting Balance Ability Normal Dynamic Sitting Balance Ability Good Standing Balance and Reactions Static Standing Balance Ability Good Dynamic Standing Balance Ability Fair M8 OT- IP Objective Assessments Start: 01/08/19 16:45 Freq: Status: Active Protocol: Document 01/08/19 12:50 PJM (Rec: 01/08/19 17:02 PJM [id number]) OT Gross Range of Motion Upper Extremity Range of Motion Assessment Within Functional Limits OT Strength Upper Extremity Strength Assessment Within Functional Limits Hand Sketch Maker Strength Hand Dominance Right OT- Coordination Assessment Comments Coordination Comments pt has B essential tremor OT-Muscle Tone Assessment Muscle Tone WNL Yes OT Sensation Assessment Comments Summary Comments BUE WNL per pt Edema Edema Absent M9 OT- IP Assessment and Plan Start: 01/08/19 16:45 Freq: Status: Active Protocol: Document 01/11/19 16:07 CGR (Rec: 01/11/19 16:12 CGR [email or web address]) OT Summary Assessment and Plan Potential Rehabilitation Potential Good Summary OT Impairments Strength Balance Functional Mobility Grooming Dressing Toileting Bathing Toilet Transfers Shower Transfers Progress Towards Goals Progressing Toward Goals Assessment Summary Pt states understanding of importance of eating. Pt now agreeable to having food brought in if hospital food is not appetizing. Pt declined activity during session but requesting shower later in day . Goals Grooming Goal Independent Dressing Goal Standby Assistance Toileting Goal Independent Bathing Goal Standby Assistance Toilet Transfer Goal Independent Shower Transfer Goal Standby Assistance Patient/Caregiver Education Goal Demonstrate Post-Op Precautions Demonstrate Energy Conservation and Pacing Caregiver Independent Assisting Patient OT-Other Goals Shower Days to Meet Goals 4 Frequency of Treatment Frequency Of Treatment Once a Day Treatment Plan OT Treatment Plan ADL Training Functional Mobility Patient/Family Education Discharge Planning Discharge Recommendations OT Discharge Recommendations Home with Assistance SNF Rehab Home Equipment Needs shower seat, lower body dressing equipt
== END 2019-01-11 15:39 | DRG 336 ==
LOC: ED 09:55 → AC 13:33
PROVIDERS: Surgery; Admitting Provider Surgery; Emergency Provider Emergency Medicine; Family Provider Internal Medicine; PCP Internal Medicine; Visit Provider Surgery
PROC: 0DNB0ZZ Release Ileum, Open Approach (ICD-10-PCS; CPT 49000; principal; 2019-01-06 16:00)
DX: K56.51 Intestinal adhesions [bands], with partial obstruction (principal); R18.8 Other ascites; J98.11 Atelectasis; G47.33 Obstructive sleep apnea (adult) (pediatric); E87.70 Fluid overload, unspecified; K40.90 Unilateral inguinal hernia, without obstruction or gangrene, not specified as recurrent
CPT/HCPCS: 36415; 36591; 44005; 71045; 74019; 74022; 74177; 80048; 80053; 82962; 83690; 83735; 85025; 93005; 93010; 94640; 94667; 94668; 94760; 94762; 96374; 96376; 97116; 97162; 97165; 97530; 97535; 99222; 99231; 99232; 99283; 99285; C9113; J0330; J0696; J1170; J1650; J1940; J2060; J2270; J2405; J2704; J3010; Q9967